=== PATIENT | female | born 1945 | race Caucasian/White ===

== ENCOUNTER → 2016-10-24 | Outpatient (CLI) | payer MEDICARE | LOC: RAD 21:41 | PROVIDERS: ATTEND Radiology Radiation Oncology | DX: C34.11 Malignant neoplasm of upper lobe, right bronchus or lung (principal) | CPT/HCPCS: 78815; A9552 ==

== ENCOUNTER → 2016-11-09 | Outpatient (CLI) | payer MEDICARE ==
[2016-11-09 17:10] LABS: ABSOLUTE BASOPHILS # (AUTO) 0.1 10^3/uL (0.0-0.2); ABSOLUTE EOSINOPHILS # (AUTO) 0.2 10^3/uL (0.0-0.6); ABSOLUTE MONOCYTES (AUTO) 0.5 10^3/uL (0.1-1.4); ABSOLUTE NEUT (AUTO) 4.7 10^3/uL (1.7-8.2); EOSINOPHILS % (AUTO) 2.1 % (0-6); HEMATOCRIT 44.5 % (36.0-47.0); HEMOGLOBIN 15.5 g/dL (12.0-15.5); LYMPHOCYTES % (AUTO) 26.7 % (13-45); MEAN CORPUSCULAR HGB CONC 34.7 g/dL (32.0-36.0); MEAN CORPUSCULAR VOLUME 89 fl (80-97); MONOCYTES % (AUTO) 6.9 % (3-13); RED BLOOD COUNT 4.99 10^6/uL (3.72-5.28); RED CELL DISTRIBUTION WIDTH 13.5 % (11.5-14.0); SEGMENTED NEUTROPHILS % (AUTO) 63.3 % (42-78); WHITE BLOOD COUNT 7.4 10^3/uL (4.0-10.5)
== END ==
LOC: OD 16:03
PROVIDERS: ATTEND Radiology Radiation Oncology
DX: C34.11 Malignant neoplasm of upper lobe, right bronchus or lung (principal)
CPT/HCPCS: 36415; 85025

== ENCOUNTER → 2016-11-17 | Outpatient (CLI) | payer MEDICARE ==
[2016-11-17 16:38] LABS: ABSOLUTE BASOPHILS # (AUTO) 0.1 10^3/uL (0.0-0.2); ABSOLUTE EOSINOPHILS # (AUTO) 0.1 10^3/uL (0.0-0.6); ABSOLUTE MONOCYTES (AUTO) 0.6 10^3/uL (0.1-1.4); ABSOLUTE NEUT (AUTO) 4.6 10^3/uL (1.7-8.2); BASOPHILS % (AUTO) 0.8 % (0-2); EOSINOPHILS % (AUTO) 2.2 % (0-6); HEMATOCRIT 39.1 % (36.0-47.0); HEMOGLOBIN 13.3 g/dL (12.0-15.5); HGB HCT DIFFERENCE 0.8; LYMPHOCYTES % (AUTO) 16.2 % (13-45); MEAN CORPUSCULAR HEMOGLOBIN 30.5 pg (27.0-33.4); MEAN CORPUSCULAR HGB CONC 34.1 g/dL (32.0-36.0); MEAN CORPUSCULAR VOLUME 89 fl (80-97); MONOCYTES % (AUTO) 9.1 % (3-13); RED BLOOD COUNT 4.38 10^6/uL (3.72-5.28); RED CELL DISTRIBUTION WIDTH 13.5 % (11.5-14.0); SEGMENTED NEUTROPHILS % (AUTO) 71.7 % (42-78); WHITE BLOOD COUNT 6.5 10^3/uL (4.0-10.5)
== END ==
LOC: OD 15:00
PROVIDERS: ATTEND Radiology Radiation Oncology
DX: C34.11 Malignant neoplasm of upper lobe, right bronchus or lung (principal)
CPT/HCPCS: 36415; 85025

== ENCOUNTER → 2016-11-24 | Outpatient (CLI) | payer MEDICARE ==
[2016-11-24 14:02] LABS: ABSOLUTE EOSINOPHILS # (AUTO) 0.1 10^3/uL (0.0-0.6); ABSOLUTE LYMPHOCYTES (AUTO) 0.7 10^3/uL (0.5-4.7); ABSOLUTE MONOCYTES (AUTO) 0.5 10^3/uL (0.1-1.4); ABSOLUTE NEUT (AUTO) 3.7 10^3/uL (1.7-8.2); BASOPHILS % (AUTO) 0.7 % (0-2); EOSINOPHILS % (AUTO) 2.5 % (0-6); HEMATOCRIT 39.5 % (36.0-47.0); HEMOGLOBIN 13.4 g/dL (12.0-15.5); HGB HCT DIFFERENCE 0.7; LYMPHOCYTES % (AUTO) 13.9 % (13-45); MEAN CORPUSCULAR HEMOGLOBIN 30.4 pg (27.0-33.4); MEAN CORPUSCULAR HGB CONC 33.9 g/dL (32.0-36.0); MEAN CORPUSCULAR VOLUME 90 fl (80-97); MONOCYTES % (AUTO) 10.1 % (3-13); RED CELL DISTRIBUTION WIDTH 13.8 % (11.5-14.0); SEGMENTED NEUTROPHILS % (AUTO) 72.8 % (42-78); WHITE BLOOD COUNT 5.1 10^3/uL (4.0-10.5)
== END ==
LOC: OD 12:36
PROVIDERS: ATTEND Radiology Radiation Oncology
DX: C34.11 Malignant neoplasm of upper lobe, right bronchus or lung (principal)
CPT/HCPCS: 36415; 85025

== ENCOUNTER → 2016-12-01 | Outpatient (CLI) | payer MEDICARE ==
[2016-12-01 13:53] LABS: ABSOLUTE EOSINOPHILS # (AUTO) 0.1 10^3/uL (0.0-0.6); ABSOLUTE LYMPHOCYTES (AUTO) 0.6 10^3/uL (0.5-4.7); ABSOLUTE MONOCYTES (AUTO) 0.5 10^3/uL (0.1-1.4); ABSOLUTE NEUT (AUTO) 3.4 10^3/uL (1.7-8.2); BASOPHILS % (AUTO) 0.7 % (0-2); EOSINOPHILS % (AUTO) 2.3 % (0-6); HEMATOCRIT 37.1 % (36.0-47.0); HEMOGLOBIN 12.9 g/dL (12.0-15.5); HGB HCT DIFFERENCE 1.6; LYMPHOCYTES % (AUTO) 13.5 % (13-45); MEAN CORPUSCULAR HEMOGLOBIN 31.2 pg (27.0-33.4); MEAN CORPUSCULAR HGB CONC 34.8 g/dL (32.0-36.0); MEAN CORPUSCULAR VOLUME 90 fl (80-97); RED BLOOD COUNT 4.13 10^6/uL (3.72-5.28); RED CELL DISTRIBUTION WIDTH 14.3 % (11.5-14.0); SEGMENTED NEUTROPHILS % (AUTO) 72.5 % (42-78); WHITE BLOOD COUNT 4.7 10^3/uL (4.0-10.5)
== END ==
LOC: OD 12:29
PROVIDERS: ATTEND Radiology Radiation Oncology
DX: C34.11 Malignant neoplasm of upper lobe, right bronchus or lung (principal)
CPT/HCPCS: 36415; 85025

== ENCOUNTER → 2016-12-08 | Outpatient (CLI) | payer MEDICARE ==
[2016-12-08 13:57] LABS: ABSOLUTE EOSINOPHILS # (AUTO) 0.1 10^3/uL (0.0-0.6); ABSOLUTE LYMPHOCYTES (AUTO) 0.5 10^3/uL (0.5-4.7); ABSOLUTE MONOCYTES (AUTO) 0.6 10^3/uL (0.1-1.4); ABSOLUTE NEUT (AUTO) 3.4 10^3/uL (1.7-8.2); EOSINOPHILS % (AUTO) 2.4 % (0-6); HEMATOCRIT 36.9 % (36.0-47.0); HEMOGLOBIN 12.9 g/dL (12.0-15.5); HGB HCT DIFFERENCE 1.8; LYMPHOCYTES % (AUTO) 11.5 % (13-45); MEAN CORPUSCULAR HEMOGLOBIN 31.5 pg (27.0-33.4); MEAN CORPUSCULAR HGB CONC 34.8 g/dL (32.0-36.0); MEAN CORPUSCULAR VOLUME 91 fl (80-97); MONOCYTES % (AUTO) 11.9 % (3-13); RED BLOOD COUNT 4.07 10^6/uL (3.72-5.28); RED CELL DISTRIBUTION WIDTH 14.8 % (11.5-14.0); SEGMENTED NEUTROPHILS % (AUTO) 73.2 % (42-78); WHITE BLOOD COUNT 4.7 10^3/uL (4.0-10.5)
== END ==
LOC: OD 12:37
PROVIDERS: ATTEND Radiology Radiation Oncology
DX: C34.11 Malignant neoplasm of upper lobe, right bronchus or lung (principal)
CPT/HCPCS: 36415; 85025

== ENCOUNTER → 2016-12-15 | Outpatient (CLI) | payer MEDICARE ==
[2016-12-15 13:51] LABS: ABSOLUTE EOSINOPHILS # (AUTO) 0.2 10^3/uL (0.0-0.6); ABSOLUTE LYMPHOCYTES (AUTO) 0.5 10^3/uL (0.5-4.7); ABSOLUTE MONOCYTES (AUTO) 0.7 10^3/uL (0.1-1.4); ABSOLUTE NEUT (AUTO) 3.1 10^3/uL (1.7-8.2); BASOPHILS % (AUTO) 1.1 % (0-2); EOSINOPHILS % (AUTO) 3.5 % (0-6); HEMATOCRIT 37.2 % (36.0-47.0); HEMOGLOBIN 12.8 g/dL (12.0-15.5); HGB HCT DIFFERENCE 1.2; MEAN CORPUSCULAR HEMOGLOBIN 31.8 pg (27.0-33.4); MEAN CORPUSCULAR HGB CONC 34.5 g/dL (32.0-36.0); MEAN CORPUSCULAR VOLUME 92 fl (80-97); RED BLOOD COUNT 4.04 10^6/uL (3.72-5.28); RED CELL DISTRIBUTION WIDTH 16.7 % (11.5-14.0); SEGMENTED NEUTROPHILS % (AUTO) 69.4 % (42-78); WHITE BLOOD COUNT 4.4 10^3/uL (4.0-10.5)
== END ==
LOC: OD 12:57
PROVIDERS: ATTEND Radiology Radiation Oncology
DX: C34.11 Malignant neoplasm of upper lobe, right bronchus or lung (principal)
CPT/HCPCS: 36415; 85025

== ENCOUNTER → 2017-01-21 | Outpatient (CLI) | payer MEDICARE ==
--- NOTE | 2017-01-21 10:37 | RADIOLOGY REPORT (SQ) ---
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 Images reviewed with lung, soft tissue and bone windows. Reconstructed coronal and sagittal MPR images reviewed. All images stored on PACS. All CT scanners at this facility use dose modulation, iterative reconstruction, and/or weight based d osing when appropriate to reduce radiation dose to as low as reasonably achievable (ALARA). [facility]: Dose Right [facility]: CareDose [facility]: Dose Right [facility]: Teradose 4D [facility]: [employer] CONTRAST TYPE AND DOSE: 80mL Isovue 370- low osmolar. RENAL FUNCTION: Creatinine 1.2 RADIATION DOSE: 8.85 mGy. LIMITATIONS: None. FINDINGS: LUNGS AND PLEURA: A 1.7 x 1.1 cm contrast enhancing nodule occludes the right mainstem bro nchus lumen on axial image 43. This is a biopsy-proven carcinoid tumor. There is stable complete collapse of the right upper lobe. Right middle and lower lobe are hyperinflated. Left lung well inflated and clear. No acute infiltra anne-marie. No pleural effusion. No pneumothorax. No worrisome pulmonary nodules. HILAR AND MEDIASTINAL STRUCTURES: Right mainstem endobronchial carcinoid tumor on axial image 23. No hilar or mediastinal adenopathy. Tiny hiatal hernia. HEART AND VASCULAR STRUCTURES: No aneurysm or dissection. No central pulmonary emboli. No pericardi al effusion. HARDWARE: None in the chest. UPPER ABDOMEN: No significant findings. Limited exam. THYROID AND OTHER SOFT TISSUES: No masses. No adenopathy. BONES: No significant finding. OTHER: No other significant finding. IMPRESSION: Unchanged right upper lobe collapse from endobronchial lesion, similar compared to prior CT chest 06/24/2016 and PET-CT 10/24/2016. TECHNICAL DOCUMENTATION: JOB ID: [id number] Quality ID # [id number]: Final reports with documentation of one or more dose reduction techniques (e.g., Au tomated exposure control, adjustment of the mA and/or kV according to patient size, use of iterative reconstruction technique) 2010 [employer]- All Rights Reserved
== END ==
LOC: RAD 08:18
PROVIDERS: ATTEND Specialist
DX: C7A.090 Malignant carcinoid tumor of the bronchus and lung (principal)
CPT/HCPCS: 71260

== ENCOUNTER → 2017-05-30 | Outpatient (CLI) | payer MEDICARE ==
--- NOTE | 2017-05-30 10:16 | RADIOLOGY REPORT (SQ) ---
EXAM DESCRIPTION: CT CHEST WITH COMPLETED DATE/TIME: 05/30/2017 9:06 am REASON FOR STUDY: LUNG CA C7A.090 MALIGNANT CARCINOID TUMOR OF THE BRONCHUS AND LUNG COMPARISON: 01/21/2017 TECHNIQUE: CT scan of the chest performed using helical scanning technique with dynamic intravenous contrast injection. Images reviewed with lung, soft tissue and bone windows. Reconstructed coronal and sagittal MPR images reviewed. All images stored on PACS. All CT scanners at this facility use dose modulation, iterative reconstruction, and/or weight based d osing when appropriate to reduce radiation dose to as low as reasonably achievable (ALARA). [facility]: Dose Right [facility]: CareDose [facility]: Dose Right [facility]: Teradose 4D [facility]: [employer] CONTRAST TYPE AND DOSE: contrast/concentration: Isovue 370.00 mg/ml; Total Contrast Delivered: 80.0 ml; Total Saline Delivered: 55.0 ml RENAL FUNCTION: Creatinine 1.0 RADIATION DOSE: Up-to-date CT equipment and radiation dose reduction techniques were employed. CTDIv ol: 9.2 mGy. DLP: 332 mGy-cm. . LIMITATIONS: None. FINDINGS: LUNGS AND PLEURA: Right upper lobe endobronchial lesion measures about 10 x 10 mm, previou sly about 10 x 17 mm. Unchanged right upper lobe collapse. No effusions. HILAR AND MEDIASTINAL STRUCTURES: No identified masses or abnormal nodes. HEART AND VASCULAR STRUCTURES: No aneurysm or dissection. No central pulmonary emboli. No pericardi al effusion. HARDWARE: None in the chest. UPPER ABDOMEN: No significant findings. Limited exam. THYROID AND OTHER SOFT TISSUES: No masses. No adenopathy. BONES: No significant finding. OTHER: No other significant finding. IMPRESSION: Decrease in size of right upper lobe endobronchial lesion. Favorable response to therap y. TECHNICAL DOCUMENTATION: JOB ID: [id number] Quality ID # [id number]: Final reports with documentation of one or more dose reduction techniques (e.g., Au tomated exposure control, adjustment of the mA and/or kV according to patient size, use of iterative reconstruction technique) 2010 [employer]- All Rights Reserved
== END ==
LOC: RAD 08:22
PROVIDERS: ATTEND Internal Medicine Hematology & Oncology
DX: C7A.090 Malignant carcinoid tumor of the bronchus and lung (principal)
CPT/HCPCS: 71260; 82565

== ENCOUNTER 2018-04-04 16:06 | Inpatient (IN) | payer MEDICARE ==
[2018-04-04] MEDS ORDERED: NORMAL SALINE 1000 ML 1,000 ML IV ONE ×2 (16:42→17:21)
[2018-04-04] MEDS ORDERED: IPRATROPIUM/ALBUTEROL 0.5-2.5 MG/3 ML AMPUL NEB ONE ×2 (16:42→18:34)
--- NOTE | 2018-04-04 16:43 | ER Document Report ---
ED General - General Mode of Arrival: Medic Information source: Relative TRAVEL OUTSIDE OF THE [place] IN LAST 30 DAYS: No <ANA FREY - Last Filed: 04/04/18 18:55> <OZIEL ARRIAZA - Last Filed: 04/04/18 19:32> - General Stated Complaint: ALTERED MENTAL STATUS Time Seen by Provider: 04/04/18 16:40 - HPI Notes: 72-year-old female with a history of dementia presents to the ED via EMS for aggressive behavior of punching and kicking and spitting EMS. Patient has a long history of dementia for approximately last 4 years, per , patient has become progressively more aggressive in the last 4 months. EMS gave patient Haldol 5 mg IM, 5 mg of Versed IM and 25 mg of Benadryl IM. Patient was placed in 4 point restraints. states that patient becomes very agitated with anyone new who comes to the house, has been his stable patient for the last year trying to take care of her but she has become too aggressive. states he started to become overwhelmed, paid for a home health care nurse to come today was her first day, patient became very upset and angry and threw things at home care nurse as to bite her. This is why EMS was called. Per patient had stopped seeing her primary care provider a year ago as well as a neurologist for her dementia because she refused to see doctors. Patient does not like the new people come to the home. states he is concerned about his own safety due to patient's dementia becoming worse the last couple of months. (ANA FREY) - Related Data Allergies/Adverse Reactions: Penicillins Allergy (Verified 04/04/18 17:05) effected kidneys Past Medical History - Social History Family History: Reviewed & Not Pertinent - Past Medical History Cardiac Medical History: Reports: Hx Hypercholesterolemia, Hx Hypertension Pulmonary Medical History: Reports: Hx COPD Musculoskeletal Medical History: Reports Hx Arthritis Psychiatric Medical History: Reports: Hx Dementia Past Surgical History: Reports: Hx Appendectomy, Hx Hysterectomy, Hx Tonsillectomy - Immunizations Hx Diphtheria, Pertussis, Tetanus Vaccination: - unknown <ANA FREY - Last Filed: 04/04/18 18:55> - Social History Smoking Status: Unknown if Ever Smoked <OZIEL ARRIAZA - Last Filed: 04/04/18 19:32> Physical Exam <SHANTEANA A - Last Filed: 04/04/18 18:55> <OZIEL ARRIAZA - Last Filed: 04/04/18 19:32> - Vital signs Vitals: Resp Pulse Ox 18 92 04/04/18 16:10 04/04/18 16:10 - Notes Notes: PHYSICAL EXAMINATION: GENERAL: Clinically ill-appearing well-nourished and in no acute distress. HEAD: Atraumatic, normocephalic. EYES: Pupils equal round and reactive to light, extraocular movements intact, conjunctiva are normal. ENT: Nares patent, oropharynx clear without exudates. Moist mucous membranes. NECK: Normal range of motion, supple without lymphadenopathy LUNGS: Bilateral wheezes in upper bases only, breath sounds heard in bilateral lower lobes. No rhonchi bilaterally. HEART: Regular rate and rhythm without murmurs ABDOMEN: Soft, nontender, nondistended abdomen. No guarding, no rebound. No masses appreciated. Female : deferred Musculoskeletal: Normal range of motion, no pitting or edema. No cyanosis. NEUROLOGICAL: Awake, alert, orientated. PSYCH: Agitated SKIN: Warm, Dry, normal turgor, no rashes or lesions noted. (ANA FREY) Course - Laboratory Result Diagrams: 04/04/18 16:30 04/04/18 16:30 <SHANTEANA A - Last Filed: 04/04/18 18:55> - Laboratory Result Diagrams: 04/04/18 16:30 04/04/18 16:30 <OZIEL ARRIAZA - Last Filed: 04/04/18 19:32> - Re-evaluation Re-evalutation: 04/04/18 18:35 72-year-old female with a medical history of dementia presents to the ED in 4 point restraints for combativeness when home care nurse came to house for evaluation, patient allegedly became very aggressive and started to kick punch and kick home care nurse, , EMS was called, she tried to kick punch and spit at EMS, patient was given 5 mg Haldol, 5 mg Versed and 25 mg of Benadryl all IM. On evaluation patient has wheezing bilateral upper bases, urine does appear cloudy when she is a straight cath. Patient's vitals appears stable, IV fluids given. CBC negative for anemia or leukocytosis. CMP negative for hepatic or renal deficiency electrolyte disturbances. Urinalysis shows pyelonephritis. Will send for urine culture. Ordered IV broad-spectrum antibiotics along with urine culture. First set of cardiac enzymes negative. EKG normal sinus rhythm, no STEMI. Chest x-ray unremarkable. Ct head negative for acute stroke noted chronic changes. Low suspicion for any acute glaucoma, temporal arteritis, meningitis intracranial hemorrhage, ischemic stroke due to patient demonstrating these aggressive behaviors for the last 4 months. appeared approximately 20 minutes after patient came to the emergency room for AMS per EMS, which pt does not have. confirms that patient's dementia has become progressively worse over the last 4 months, has had dementia for the last 3 years. Patient has not been evaluated by a medical provider in the duration of time. Patienconsulted with Dr. Avril Basurto, as well as for patient having a pyelonephritis with encephalopathy. Will admit to hospitalist to medical floor for IV antibiotics as well as monitoring 04/04/18 18:55 (ANA FREY) - Vital Signs Vital signs: Temp Pulse Resp BP Pulse Ox 97.8 F 27 H 120/86 H 96 04/04/18 18:11 04/04/18 19:11 04/04/18 19:11 04/04/18 19:10 - Laboratory Laboratory results interpreted by me: 04/04/18 04/04/18 16:30 16:30 Chloride 97 L Carbon Dioxide 33 H Est GFR (Non-Af Amer) 57 L Glucose 115 H Urine Protein 30 H Urine Blood SMALL H Urine Nitrite POSITIVE H Urine Urobilinogen 2.0 H Ur Leukocyte Esterase LARGE H Discharge - Discharge Admitting Provider: Hospitalist - Dr. Avril Basurto <ANA FREY - Last Filed: 04/04/18 18:55> - Discharge Unit Admitted: Medical Floor <OZIEL ARRIAZA - Last Filed: 04/04/18 19:32> - Discharge Clinical Impression: Acute pyelonephritis, Encephalopathy due to pyelonephritis Condition: Stable Disposition: ADMITTED INPATIENT Instructions: Pyelonephritis ([facility]) Referrals: THOR MAZARIEGOS MD [ASSOCIATE] - Follow up as needed
[2018-04-04 17:02] LABS: ABSOLUTE EOSINOPHILS # (AUTO) 0.1 10^3/uL (0.0-0.6); ABSOLUTE LYMPHOCYTES (AUTO) 1.3 10^3/uL (0.5-4.7); ABSOLUTE MONOCYTES (AUTO) 0.5 10^3/uL (0.1-1.4); ABSOLUTE NEUT (AUTO) 5.1 10^3/uL (1.7-8.2); BASOPHILS % (AUTO) 0.5 % (0-2); EOSINOPHILS % (AUTO) 0.8 % (0-6); HEMATOCRIT 37.8 % (36.0-47.0); HEMOGLOBIN 12.8 g/dL (12.0-15.5); LYMPHOCYTES % (AUTO) 18.7 % (13-45); MEAN CORPUSCULAR VOLUME 91 fl (80-97); MONOCYTES % (AUTO) 7.2 % (3-13); PLATELET COUNT 224 10^3/uL (150-450); RED BLOOD COUNT 4.13 10^6/uL (3.72-5.28); RED CELL DISTRIBUTION WIDTH 13.5 % (11.5-14.0); SEGMENTED NEUTROPHILS % (AUTO) 72.8 % (42-78); TOTAL CELLS COUNTED % (AUTO) 100 %; WHITE BLOOD COUNT 7.1 10^3/uL (4.0-10.5)
[2018-04-04 17:17] LABS: ALANINE AMINOTRANSFERASE 21 U/L (9-52); ALBUMIN 3.8 g/dL (3.5-5.0); ALKALINE PHOSPHATASE 66 U/L (38-126); ANION GAP 13 (5-19); ASPARTATE AMINO TRANSFERASE 27 U/L (14-36); BILIRUBIN,DIRECT 0.4 mg/dL (0.0-0.4); BILIRUBIN,TOTAL 0.5 mg/dL (0.2-1.3); BLOOD UREA NITROGEN 18 mg/dL (7-20); CALCIUM 9.9 mg/dL (8.4-10.2); CARBON DIOXIDE 33 mmol/L (22-30); CHLORIDE 97 mmol/L (98-107); CREATINE KINASE 96 U/L (30-135); GLUCOSE 115 mg/dL (75-110); SODIUM 143.2 mmol/L (137-145); TOTAL PROTEIN 6.4 g/dL (6.3-8.2)
[2018-04-04 17:23] LABS: CREATINE KINASE MB 1.44 ng/mL (<4.55); TROPONIN I < 0.012 ng/mL
--- NOTE | 2018-04-04 17:23 | RADIOLOGY REPORT (SQ) ---
EXAM DESCRIPTION: CHEST SINGLE VIEW COMPLETED DATE/TIME: 04/04/2018 4:56 pm REASON FOR STUDY: wheezing in lungs COMPARISON: 06/24/2016. CT 05/30/2017 EXAM PARAMETERS: NUMBER OF VIEWS: One view. TECHNIQUE: Single frontal radiographic view of the chest acquired. RADIATION DOSE: NA LIMITATIONS: None. FINDINGS: LUNGS AND PLEURA: No opacities, masses or pneumothorax. No pleural effusion. MEDIASTINUM AND HILAR STRUCTURES: Slightly prominent contour to the mediastinum on the right but sign ificantly improved compared to the study from 06/24/2016 HEART AND VASCULAR STRUCTURES: Heart normal in size. Normal vasculature. BONES: No acute findings. HARDWARE: None in the chest. OTHER: No other significant finding. IMPRESSION: NO ACUTE RADIOGRAPHIC FINDING IN THE CHEST. TECHNICAL DOCUMENTATION: JOB ID: [id number] [employer]- All Rights Reserved Reading location - IP/workstation name: [email or web address]
[2018-04-04 17:45] LABS: APPEARANCE,URINE CLOUDY; BILIRUBIN,URINE NEGATIVE (NEGATIVE); COLOR,URINE YELLOW; GLUCOSE, URINE NEGATIVE (NEGATIVE); KETONES,URINE NEGATIVE (NEGATIVE); LEUKOCYTE ESTERASE,URINE LARGE (NEGATIVE); NITRITE,URINE POSITIVE (NEGATIVE); PROTEIN,URINE 30 mg/dL (NEGATIVE); URINE SPECIFIC GRAVITY 1.019
[2018-04-04] MEDS ORDERED: DIPHENHYDRAMINE HCL 50 MG/ML VIAL IV ONE (18:16)
[2018-04-04] MEDS ORDERED: DIPHENHYDRAMINE HCL 50 MG/ML VIAL ONE (18:17)
[2018-04-04] MEDS ORDERED: CEFTRIAXONE INJ 1000 MG VIAL IV ONE (18:28)
--- NOTE | 2018-04-04 18:36 | RADIOLOGY REPORT (SQ) ---
EXAM DESCRIPTION: CT HEAD WITHOUT COMPLETED DATE/TIME: 04/04/2018 6:25 pm REASON FOR STUDY: AMS COMPARISON: None. TECHNIQUE: Axial images acquired through the brain without intravenous contrast. Images reviewed wi th bone, brain and subdural windows. Additional sagittal and coronal reconstructions were generated. Images stored on PACS. All CT scanners at this facility use dose modulation, iterative reconstruction, and/or weight based d osing when appropriate to reduce radiation dose to as low as reasonably achievable (ALARA). [facility]: Dose Right [facility]: CareDose [facility]: Dose Right [facility]: Teradose 4D [facility]: [employer] RADIATION DOSE: CT Rad equipment meets quality standard of care and radiation dose reduction techniq ues were employed. CTDIvol: 53.2 mGy. DLP: 991 mGy-cm. mGy. LIMITATIONS: None. FINDINGS: VENTRICLES: Prominent. CEREBRUM: No masses. No hemorrhage. No midline shift. Areas of low density in the white matter mos t likely due to chronic micro-vascular ischemic change. No evidence for acute infarction. CEREBELLUM: No masses. No hemorrhage. No alteration of density. No evidence for acute infarction. EXTRAAXIAL SPACES: Mild age-related involutional change. No fluid collections. No masses. ORBITS AND GLOBE: No intra- or extraconal masses. Normal contour of globe without masses. CALVARIUM: No fracture. PARANASAL SINUSES: No fluid or mucosal thickening. SOFT TISSUES: No mass or hematoma. OTHER: No other significant finding. IMPRESSION: MILD CHRONIC CHANGES OF ATROPHY AND MICROVASCULAR ISCHEMIA. NO ACUTE PROCESS. EVIDENCE OF ACUTE STROKE: NO. TECHNICAL DOCUMENTATION: JOB ID: [id number] Quality ID # 436: Final reports with documentation of one or more dose reduction techniques (e.g., Au tomated exposure control, adjustment of the mA and/or kV according to patient size, use of iterative reconstruction technique) 2010 [employer]- All Rights Reserved Reading location - IP/workstation name: [email or web address]
[2018-04-04] MEDS ORDERED: 1/2 NORMAL SALINE 1,000 ML IV PRN (20:11)
[2018-04-04] MEDS ORDERED: HALOPERIDOL LACTATE INJ 5 MG/1 ML VIAL IV ONE (20:30)
[2018-04-04] MEDS: ENOXAPARIN SODIUM INJ 30 MG/0.3 ML DISP.SYRIN SUBCUT SCH (20:32)
--- NOTE | 2018-04-04 22:17 | RADIOLOGY REPORT (SQ) ---
EXAM DESCRIPTION: CT CHEST WITH COMPLETED DATE/TIME: 04/04/2018 9:19 pm REASON FOR STUDY: H/O LUNG CANCER. COMPARISON: Chest x-ray 04/04/2018 CT 05/30/2017 TECHNIQUE: CT scan of the chest performed using helical scanning technique with dynamic intravenous contrast injection. Images reviewed with lung, soft tissue and bone windows. Reconstructed coronal and sagittal MPR images reviewed. All images stored on PACS. All CT scanners at this facility use dose modulation, iterative reconstruction, and/or weight based d osing when appropriate to reduce radiation dose to as low as reasonably achievable (ALARA). [facility]: Dose Right [facility]: CareDose [facility]: Dose Right [facility]: Teradose 4D [facility]: [employer] CONTRAST TYPE AND DOSE: contrast/concentration: Isovue 350.00 mg/ml; Total Contrast Delivered: 80.0 ml; Total Saline Delivered: 55.0 ml RENAL FUNCTION: BUN 18 creatinine 1 RADIATION DOSE: CT Rad equipment meets quality standard of care and radiation dose reduction techniq ues were employed. CTDIvol: 9.4 mGy. DLP: 320 mGy-cm. . LIMITATIONS: None. FINDINGS: LUNGS AND PLEURA: No pulmonary nodules or masses. Significant right upper lobe atelectasi s. HILAR AND MEDIASTINAL STRUCTURES: No identified masses or abnormal nodes. HEART AND VASCULAR STRUCTURES: No aneurysm or dissection. No central pulmonary emboli. No pericardi al effusion. HARDWARE: None in the chest. UPPER ABDOMEN: No significant findings. Limited exam. THYROID AND OTHER SOFT TISSUES: No masses. No adenopathy. BONES: No significant finding. OTHER: No other significant finding. IMPRESSION: Persistent partial atelectasis in the right upper lobe. TECHNICAL DOCUMENTATION: JOB ID: [id number] Quality ID # [id number]: Final reports with documentation of one or more dose reduction techniques (e.g., Au tomated exposure control, adjustment of the mA and/or kV according to patient size, use of iterative reconstruction technique) 2010 [employer]- All Rights Reserved Reading location - IP/workstation name: [email or web address]
--- NOTE | 2018-04-04 22:35 | EKG REPORT ---
SEVERITY:- BORDERLINE ECG - SINUS RHYTHM RIGHT AXIS DEVIATION BORDERLINE PROLONGED QT INTERVAL : Confirmed by: Juana Braga MD 04-Apr-2018 22:35:16
[2018-04-05] MEDS ORDERED: HALOPERIDOL 2 MG TABLET ONE (05:22)
[2018-04-05] MEDS: HALOPERIDOL 2 MG TABLET PO PRN ×2 (05:24→12:31)
[2018-04-05] MEDS: ENOXAPARIN SODIUM INJ 30 MG/0.3 ML DISP.SYRIN SUBCUT SCH (09:03)
[2018-04-05] MEDS ORDERED: (PENDING PHARMACY ID) (Lisinopril [Prinivil 30 Mg Tablet] 30 MG) PO SCH (14:30)
--- NOTE | 2018-04-05 15:46 | PSYCHOLOGICAL NOTE ---
Psych Note - Psych Note Psych Note: Reason for Consult: medication recommendations 72-year-old female with a history of dementia presents to the ED via EMS for aggressive behavior of punching and kicking and spitting EMS. Patient has a long history of dementia for approximately last 4 years, per , patient has become progressively more aggressive in the last 4 months. Medication recommendations per [facility]'s contracted psychiatrist Dr. Sridevi MEDRANO are as follows 1. Please discontinue Lexapro and Haldol 2. Please start Depakote 500 mg twice daily 3. Please start BuSpar 10 mg twice daily Treating physicians are asked to consider to avoid prescribing benzodiazepines ( e.g. Ativan, Xanax, Valium, Klonopin), antipsychotics (e.g. Haldol, Geodon, Zyprexa, Seroquel), some sleep aids (e.g. Ambien, Lunesta, Sonata), narcotic pain medications, and high-dose steroids (prednisone) as these have been known to cause and/or increased symptoms of aggression, psychosis, and/or paranoia in patients with neurodegenerative processes such as dementia, Alzheimer's disease , traumatic brain injury, etc.
[2018-04-05 15:56] LABS: ABSOLUTE BASOPHILS # (AUTO) 0.1 10^3/uL (0.0-0.2); ABSOLUTE EOSINOPHILS # (AUTO) 0.1 10^3/uL (0.0-0.6); ABSOLUTE MONOCYTES (AUTO) 0.5 10^3/uL (0.1-1.4); ABSOLUTE NEUT (AUTO) 5.7 10^3/uL (1.7-8.2); BASOPHILS % (AUTO) 0.8 % (0-2); EOSINOPHILS % (AUTO) 0.8 % (0-6); HEMATOCRIT 34.4 % (36.0-47.0); HEMOGLOBIN 11.8 g/dL (12.0-15.5); LYMPHOCYTES % (AUTO) 13.1 % (13-45); MEAN CORPUSCULAR HEMOGLOBIN 31.2 pg (27.0-33.4); MEAN CORPUSCULAR HGB CONC 34.1 g/dL (32.0-36.0); MEAN CORPUSCULAR VOLUME 91 fl (80-97); MONOCYTES % (AUTO) 6.6 % (3-13); PLATELET COUNT 183 10^3/uL (150-450); RED BLOOD COUNT 3.77 10^6/uL (3.72-5.28); RED CELL DISTRIBUTION WIDTH 13.5 % (11.5-14.0); SEGMENTED NEUTROPHILS % (AUTO) 78.7 % (42-78); TOTAL CELLS COUNTED % (AUTO) 100 %; WHITE BLOOD COUNT 7.2 10^3/uL (4.0-10.5)
[2018-04-05 16:16] LABS: ALANINE AMINOTRANSFERASE 29 U/L (9-52); ALKALINE PHOSPHATASE 73 U/L (38-126); ANION GAP 6 (5-19); ASPARTATE AMINO TRANSFERASE 29 U/L (14-36); BILIRUBIN,DIRECT 0.2 mg/dL (0.0-0.4); BILIRUBIN,TOTAL 0.6 mg/dL (0.2-1.3); BLOOD UREA NITROGEN 8 mg/dL (7-20); CALCIUM 8.8 mg/dL (8.4-10.2); CARBON DIOXIDE 34 mmol/L (22-30); CHLORIDE 103 mmol/L (98-107); GLUCOSE 86 mg/dL (75-110); SODIUM 143.3 mmol/L (137-145); TOTAL PROTEIN 5.4 g/dL (6.3-8.2)
[2018-04-05 16:21] LABS: POTASSIUM 2.9 mmol/L (3.6-5.0)
[2018-04-05] MEDS: POTASSIUM CHLORIDE 20 MEQ/50 ML RTU IV SCH ×2 (16:54→19:01)
[2018-04-05] MEDS: HYDROCHLOROTHIAZIDE 25 MG TABLET PO SCH (16:57)
[2018-04-05] MEDS: ASPIRIN 81 MG TABLET, ENT COATED PO SCH (16:59)
[2018-04-05] MEDS: HALOPERIDOL LACTATE INJ 5 MG/1 ML VIAL IV PRN ×2 (17:00→23:14)
[2018-04-05] MEDS: ESCITALOPRAM OXALATE 10 MG TABLET PO SCH (17:00)
[2018-04-05] MEDS: BUDESONIDE/FORMOTEROL 160-4.5 MCG 60 PUFF/6 GM MDI IH SCH ×2 (17:04→23:15)
--- NOTE | 2018-04-05 18:16 | PDOC H&P ---
History of Present Illness Admission Date/PCP: 04/04/18 19:41 KATERIN ANDERSON MD Patient complains of: ALTERED MENTAL STATUS. DEMENTIA. History of Present Illness: ESME DENG is a 72 year old female History is mainly thru . is in 4 point restraints. pt is alert and awake but disoriented and agitated and delirius. ED note reviewed as below. 72-year-old female with a history of dementia presents to the ED via EMS for aggressive behavior of punching and kicking and spitting EMS. Patient has a long history of dementia for approximately last 4 years, per , patient has become progressively more aggressive in the last 4 months. EMS gave patient Haldol 5 mg IM, 5 mg of Versed IM and 25 mg of Benadryl IM. Patient was placed in 4 point restraints. states that patient becomes very agitated with anyone new who comes to the house, has been his stable patient for the last year trying to take care of her but she has become too aggressive. states he started to become overwhelmed, paid for a home health care nurse to come today was her first day, patient became very upset and angry and threw things at home care nurse as to bite her. This is why EMS was called. Per patient had stopped seeing her primary care provider a year ago as well as a neurologist for her dementia because she refused to see doctors. Patient does not like the new people come to the home. states he is concerned about his own safety due to patient's dementia becoming worse the last couple of months. Past Medical History Cardiac Medical History: Reports: Hyperlipidema, Hypertension Pulmonary Medical History: Reports: Chronic Obstructive Pulmonary Disease (COPD) Pulmonary History Note: LUNG CANCER S/P RESECTION AND S/P RADIATION. Musculoskeltal Medical History: Reports: Arthritis Psychiatric Medical History: Reports: Dementia Hematology: Denies: Anemia, Hemophilia, Sickle Cell Disease Past Surgical History Past Surgical History: Reports: Appendectomy, Hysterectomy, Tonsillectomy Denies: Amputation Social History Information Source: Relative - SPOUSE JOHANNA DENG [phone]. Lives with: Family Smoking Status: Unknown if Ever Smoked Hx Recreational Drug Use: No Hx Prescription Drug Abuse: No Family History Family History: Reviewed & Not Pertinent Parental Family History Reviewed: No - not contributory and pt unable to give history Children Family History Reviewed: NA Sibling(s) Family History Reviewed.: NA Medication/Allergy Home Medications: Aspirin [Aspirin EC] 81 mg PO DAILY 06/25/16 Atorvastatin Calcium [Lipitor 10 mg Tablet] 10 mg PO QHS 06/25/16 Budesonide/Formoterol Fumarate [Symbicort HFA 160-4.5 mcg Inhaler 6 gm] 1 puff PO Q12 06/25/16 Donepezil HCl 10 mg PO QHS 06/25/16 Escitalopram Oxalate [Lexapro 10 mg Tablet] 10 mg PO DAILY 06/25/16 Hydrochlorothiazide 25 mg PO DAILY 06/25/16 Lisinopril [Prinivil 30 mg Tablet] 30 mg PO DAILY 06/25/16 Omeprazole 20 mg PO DAILY 06/25/16 Potassium Chloride 20 meq PO DAILY 06/25/16 Cholecalciferol (Vitamin D3) [Vitamin D3 5000 unit Capsule] 5,000 unit PO DAILY 04/04/18 Allergies/Adverse Reactions: Penicillins Allergy (Verified 04/04/18 17:05) effected kidneys Review of Systems ROS unobtainable: Due to mental status Physical Exam Vital Signs: Temp Pulse Resp BP Pulse Ox 97.8 F 27 H 120/86 H 96 04/04/18 18:11 04/04/18 19:11 04/04/18 19:11 04/04/18 19:10 General appearance: PRESENT: no acute distress, disheveled Eye exam: PRESENT: EOMI, PERRLA Ear exam: PRESENT: normal external ear exam Teeth exam: PRESENT: dental caries Respiratory exam: PRESENT: crackles, rhonchi, wheezes. ABSENT: accessory muscle use Cardiovascular exam: PRESENT: RRR GI/Abdominal exam: PRESENT: normal bowel sounds, soft. ABSENT: tenderness Rectal exam: PRESENT: deferred Neurological exam: PRESENT: alert, awake, CN II-XII grossly intact Psychiatric exam: PRESENT: agitated. ABSENT: appropriate affect Focused psych exam: PRESENT: restlessness Results Impressions: Chest X-Ray 04/04/18 16:40 IMPRESSION: NO ACUTE RADIOGRAPHIC FINDING IN THE CHEST. Head CT 04/04/18 17:13 IMPRESSION: MILD CHRONIC CHANGES OF ATROPHY AND MICROVASCULAR ISCHEMIA. NO ACUTE PROCESS. EVIDENCE OF ACUTE STROKE: NO. Assessment & Plan - Diagnosis (1) Agitation Is this a current diagnosis for this admission?: Yes Plan: pt to continue on haldol prn and will evaluate with labs and imaging. (2) UTI (urinary tract infection) Qualifiers: Urinary tract infection type: acute cystitis Hematuria presence: with hematuria Qualified Code(s): N30.01 - Acute cystitis with hematuria Is this a current diagnosis for this admission?: Yes Plan: pt received rocephin and will continue abx. culture sent. (3) Lung cancer Qualifiers: Laterality: unspecified laterality Is this a current diagnosis for this admission?: No Plan: ct chest with contrast. (4) Requires restraints for safety Is this a current diagnosis for this admission?: Yes
--- NOTE | 2018-04-05 18:20 | PDOC PROGRESS REPORT ---
Subjective Progress Note for:: 04/05/18 Subjective:: Patient seen today for follow-up for her agitation delirium on chronic dementia. Psychiatry also has been consulted. Overnight patient provided antibiotic supportive care. Patient did require soft restraints with a sitter for safety. Today his son and spouse are at bedside. Her keen to discuss options for patient's medical condition and placement. Per is not able to take care of her patient is not safe and he feels that patient is at risk to hurt herself or somebody else. We will get case management on board and community planner. Reason For Visit: AGITATION/DELIRIUM/UTI Physical Exam Vital Signs: Temp Pulse Resp BP Pulse Ox 99.6 F 95 17 129/88 H 100 04/05/18 15:47 04/05/18 15:47 04/05/18 15:47 04/05/18 15:47 04/05/18 15:47 Intake & Output 04/04/18 04/05/18 04/06/18 06:59 06:59 06:59 Intake Total 1250 Output Total 500 Balance 750 Weight 127 lb 10.362 oz General appearance: PRESENT: no acute distress, cooperative Head exam: PRESENT: atraumatic, normocephalic Eye exam: PRESENT: EOMI Teeth exam: PRESENT: dental caries Respiratory exam: PRESENT: clear to auscultation iram Cardiovascular exam: PRESENT: RRR GI/Abdominal exam: PRESENT: soft. ABSENT: distended, tenderness Results Laboratory Results: 04/05/18 15:38 04/05/18 15:38 04/05/18 04/05/18 15:38 15:38 WBC 7.2 RBC 3.77 Hgb 11.8 L Hct 34.4 L MCV 91 MCH 31.2 MCHC 34.1 RDW 13.5 Plt Count 183 Seg Neutrophils % 78.7 H Lymphocytes % 13.1 Monocytes % 6.6 Eosinophils % 0.8 Basophils % 0.8 Absolute Neutrophils 5.7 Absolute Lymphocytes 1.0 Absolute Monocytes 0.5 Absolute Eosinophils 0.1 Absolute Basophils 0.1 Sodium 143.3 Potassium 2.9 L* D Chloride 103 Carbon Dioxide 34 H Anion Gap 6 BUN 8 Creatinine 0.81 Est GFR ( Amer) > 60 Est GFR (Non-Af Amer) > 60 Glucose 86 Calcium 8.8 Total Bilirubin 0.6 AST 29 ALT 29 Alkaline Phosphatase 73 Total Protein 5.4 L Albumin 3.0 L Impressions: Chest CT 04/04/18 00:00 IMPRESSION: Persistent partial atelectasis in the right upper lobe. Chest X-Ray 04/04/18 16:40 IMPRESSION: NO ACUTE RADIOGRAPHIC FINDING IN THE CHEST. Head CT 04/04/18 17:13 IMPRESSION: MILD CHRONIC CHANGES OF ATROPHY AND MICROVASCULAR ISCHEMIA. NO ACUTE PROCESS. EVIDENCE OF ACUTE STROKE: NO. Assessment & Plan - Diagnosis (1) Agitation Is this a current diagnosis for this admission?: Yes Plan: Psychiatry consultation. Medication changes as advised. prn Haldol for severe agitation. (2) UTI (urinary tract infection) Qualifiers: Urinary tract infection type: acute cystitis Hematuria presence: with hematuria Qualified Code(s): N30.01 - Acute cystitis with hematuria Is this a current diagnosis for this admission?: Yes Plan: Continue antibiotic therapy until culture and sensitivities resulted. (3) Lung cancer Qualifiers: Laterality: unspecified laterality Is this a current diagnosis for this admission?: No (4) Requires restraints for safety Is this a current diagnosis for this admission?: Yes
[2018-04-05] MEDS ORDERED: (PENDING PHARMACY ID) (Donepezil Hcl [Donepezil Hcl] 10 MG) PO SCH (22:00)
[2018-04-05] MEDS: DONEPEZIL HCL 5 MG TABLET PO SCH (23:14)
[2018-04-05] MEDS: ATORVASTATIN CALCIUM 10 MG TABLET PO SCH (23:15)
[2018-04-06] MEDS: LANSOPRAZOLE 15 MG TAB.RAP.DR PO SCH (05:26)
[2018-04-06] MEDS: BUDESONIDE/FORMOTEROL 160-4.5 MCG 60 PUFF/6 GM MDI IH SCH ×2 (09:13→21:16)
[2018-04-06] MEDS: ASPIRIN 81 MG TABLET, ENT COATED PO SCH (09:13)
[2018-04-06] MEDS: LISINOPRIL 10 MG TABLET PO SCH (09:13)
[2018-04-06] MEDS: ESCITALOPRAM OXALATE 10 MG TABLET PO SCH (09:13)
[2018-04-06] MEDS: ENOXAPARIN SODIUM INJ 30 MG/0.3 ML DISP.SYRIN SUBCUT SCH (09:14)
[2018-04-06 10:58] LABS: ABSOLUTE LYMPHOCYTES (AUTO) 0.8 10^3/uL (0.5-4.7); ABSOLUTE MONOCYTES (AUTO) 0.3 10^3/uL (0.1-1.4); ABSOLUTE NEUT (AUTO) 6.4 10^3/uL (1.7-8.2); BASOPHILS % (AUTO) 0.6 % (0-2); EOSINOPHILS % (AUTO) 0.5 % (0-6); HEMATOCRIT 37.1 % (36.0-47.0); HEMOGLOBIN 12.5 g/dL (12.0-15.5); LYMPHOCYTES % (AUTO) 10.3 % (13-45); MEAN CORPUSCULAR HEMOGLOBIN 30.9 pg (27.0-33.4); MEAN CORPUSCULAR HGB CONC 33.8 g/dL (32.0-36.0); MEAN CORPUSCULAR VOLUME 91 fl (80-97); MONOCYTES % (AUTO) 4.5 % (3-13); PLATELET COUNT 202 10^3/uL (150-450); RED BLOOD COUNT 4.05 10^6/uL (3.72-5.28); RED CELL DISTRIBUTION WIDTH 13.4 % (11.5-14.0); SEGMENTED NEUTROPHILS % (AUTO) 84.1 % (42-78); TOTAL CELLS COUNTED % (AUTO) 100 %; WHITE BLOOD COUNT 7.6 10^3/uL (4.0-10.5)
[2018-04-06 11:22] LABS: ALANINE AMINOTRANSFERASE 28 U/L (9-52); ALBUMIN 3.2 g/dL (3.5-5.0); ALKALINE PHOSPHATASE 75 U/L (38-126); ANION GAP 9 (5-19); ASPARTATE AMINO TRANSFERASE 26 U/L (14-36); BILIRUBIN,DIRECT 0.2 mg/dL (0.0-0.4); BILIRUBIN,TOTAL 0.6 mg/dL (0.2-1.3); BLOOD UREA NITROGEN 7 mg/dL (7-20); CALCIUM 8.9 mg/dL (8.4-10.2); CARBON DIOXIDE 34 mmol/L (22-30); CHLORIDE 102 mmol/L (98-107); GLUCOSE 137 mg/dL (75-110); PHOSPHORUS 2.4 mg/dL (2.5-4.5); TOTAL PROTEIN 5.6 g/dL (6.3-8.2)
[2018-04-06 11:26] LABS: POTASSIUM 2.8 mmol/L (3.6-5.0)
[2018-04-06] MEDS: HYDROCHLOROTHIAZIDE 25 MG TABLET PO SCH (11:58)
[2018-04-06] MEDS ORDERED: MAGNESIUM OXIDE 400 MG TABLET PO ONE (12:00)
--- NOTE | 2018-04-06 12:04 | Physician Advisory Note ---
Physician Advisor ProgressNote .: [facility], I have reviewed the medical record for this patient. Physician Advisor Statement: Documentation tips - 1. Please avoid copy/paste of narrative info - use your own words, even if you go over the same info. 2. Agitation & delirium are nonspecific sign/symptoms, rather than specific dx.s. - Whenever there is agitation or altered mental status, or delirium, please specify the most likely underlying cause. Options are below. Thanks! (Call/text if ?s -[phone]) CK Types of altered mental status (AMS): A. Metabolic Encephalopathy due to (UTI?) = AMS due to acute or chronic medical disease state, such as systemic metabolic or intracranial process that is usually reversible when the underlying cause is corrected. - Causes include fever, infection, dehydration, acidosis, sepsis, hypoxia, electrolyte imbalance, B. Toxic Encephalopathy due to =AMS due to drug, poison, or toxin. Usually reversible. C. "Dementia w/behavioral disturbance" (a chronic issue) D. Acute Delirium due to ("Acute Metabolic Encephalopathy, due to "? or worsening chronic dementia with sundowning? or "Acute Metabolic Encephopathy, superimposed on dementia, evidenced by (which is different than baseline, which is )?) Delirium = nonspecific disorientation/behavioral problem with a cause that can be psychiatric, encephalopathic, or intracranial. *If documentation does not specify the underlying cause of delirium, the ICD- 10 coding classification attributes it to a psychiatric origin (such as schizophrenia, joshua, or rapid progression of dementia), with a correspondingly lower severity of illness, than if there is encephalopathy.
[2018-04-06] MEDS ORDERED: POTASSIUM PHOS,M-BASIC-D-BASIC 40 MMOL in NORMAL SALINE 1000 ML 1,000 ML IV ONE (13:00)
[2018-04-06] MEDS ORDERED: POTASSIUM CHLORIDE 10 MEQ CAPSULE.ER PO SCH (15:00)
[2018-04-06] MEDS: CHOLECALCIFEROL (D3) 1,000 UNIT TABLET PO SCH (16:23)
[2018-04-06] MEDS: DIVALPROEX SODIUM 250 MG TABLET.DR PO SCH (17:22)
[2018-04-06] MEDS: BUSPIRONE HCL 10 MG TABLET PO SCH (17:22)
[2018-04-06] MEDS: ATORVASTATIN CALCIUM 10 MG TABLET PO SCH (21:16)
[2018-04-06] MEDS: DONEPEZIL HCL 5 MG TABLET PO SCH (21:16)
--- NOTE | 2018-04-06 23:20 | PDOC PROGRESS REPORT ---
Subjective Progress Note for:: 04/06/18 Subjective:: Patient seen today for follow-up for her agitation delirium on chronic dementia. Psychiatry also has been consulted. Overnight patient provided antibiotic supportive care. Patient did require soft restraints with a sitter for safety. Today his son and spouse are at bedside. Her keen to discuss options for patient's medical condition and placement. Per is not able to take care of her patient is not safe and he feels that patient is at risk to hurt herself or somebody else. We will get case management on board and resource management planner. 04/06/18 Patient seen today for follow-up of her dementia with behavioral disturbance the patient had been aggressive and violent with EMS transport. Suspect patient's infection could also be contributing to her acute delirium due to metabolic encephalopathy the from her urinary tract infection Per psychiatrist medication recommendations were implemented. Patient is calm today and 2 point soft restraints had 1 dose of Haldol today. Reason For Visit: AGITATION/DELIRIUM/UTI Physical Exam Vital Signs: Temp Pulse Resp BP Pulse Ox 98.7 F 78 19 147/69 H 100 04/06/18 19:22 04/06/18 19:22 04/06/18 19:22 04/06/18 19:22 04/06/18 19:22 Intake & Output 04/05/18 04/06/18 04/07/18 06:59 06:59 06:59 Intake Total 1250 668 236 Output Total 500 2600 350 Balance 750 -1932 -114 Weight 127 lb 10.362 oz 132 lb 0.91 oz General appearance: PRESENT: no acute distress, cooperative Eye exam: PRESENT: EOMI Ear exam: PRESENT: normal external ear exam Respiratory exam: PRESENT: clear to auscultation iram Cardiovascular exam: PRESENT: RRR GI/Abdominal exam: PRESENT: normal bowel sounds, soft. ABSENT: distended, tenderness Neurological exam: PRESENT: alert, awake, CN II-XII grossly intact Psychiatric exam: ABSENT: agitated, anxious Focused psych exam: ABSENT: pressured speech, restlessness Results Laboratory Results: 04/06/18 10:05 04/06/18 10:05 04/06/18 04/06/18 10:05 10:05 WBC 7.6 RBC 4.05 Hgb 12.5 Hct 37.1 MCV 91 MCH 30.9 MCHC 33.8 RDW 13.4 Plt Count 202 Seg Neutrophils % 84.1 H Lymphocytes % 10.3 L Monocytes % 4.5 Eosinophils % 0.5 Basophils % 0.6 Absolute Neutrophils 6.4 Absolute Lymphocytes 0.8 Absolute Monocytes 0.3 Absolute Eosinophils 0.0 Absolute Basophils 0.0 Sodium 145.0 Potassium 2.8 L* Chloride 102 Carbon Dioxide 34 H Anion Gap 9 BUN 7 Creatinine 0.75 Est GFR ( Amer) > 60 Est GFR (Non-Af Amer) > 60 Glucose 137 H Calcium 8.9 Phosphorus 2.4 L Magnesium 1.8 Total Bilirubin 0.6 AST 26 ALT 28 Alkaline Phosphatase 75 Total Protein 5.6 L Albumin 3.2 L Impressions: Chest CT 04/04/18 00:00 IMPRESSION: Persistent partial atelectasis in the right upper lobe. Chest X-Ray 04/04/18 16:40 IMPRESSION: NO ACUTE RADIOGRAPHIC FINDING IN THE CHEST. Head CT 04/04/18 17:13 IMPRESSION: MILD CHRONIC CHANGES OF ATROPHY AND MICROVASCULAR ISCHEMIA. NO ACUTE PROCESS. EVIDENCE OF ACUTE STROKE: NO. Assessment & Plan - Diagnosis (1) Metabolic encephalopathy Is this a current diagnosis for this admission?: Yes Plan: Attribute mental status due to metabolic encephalopathy related to her urinary tract infection. (2) UTI (urinary tract infection) Qualifiers: Urinary tract infection type: acute cystitis Hematuria presence: with hematuria Qualified Code(s): N30.01 - Acute cystitis with hematuria Is this a current diagnosis for this admission?: Yes Plan: Continue antibiotic therapy until culture and sensitivities resulted. (3) Requires restraints for safety Is this a current diagnosis for this admission?: Yes Plan: Two-point restraints for safety (4) Hypophosphatemia Is this a current diagnosis for this admission?: Yes Plan: Patient given IV phosphorus today. We will check levels in the morning (5) Hypokalemia Is this a current diagnosis for this admission?: Yes Plan: Patient given IV potassium combination today for her hypokalemia and hypophosphatemia. - Time Time Spent with patient: Less than 15 minutes Within: within 48 hours - Inpatient Certification Based on my medical assessment, after consideration of the patient's comorbidities, presenting symptoms, or acuity I expect that the services needed warrant INPATIENT care.: Yes I certify that my determination is in accordance with my understanding of Medicare's requirements for reasonable and necessary INPATIENT services [42 CFR 412.3e].: Yes Medical Necessity: Need Close Monitoring Due to Risk of Patient Decompensation
[2018-04-07 05:09] LABS: ABSOLUTE BASOPHILS # (AUTO) 0.1 10^3/uL (0.0-0.2); ABSOLUTE EOSINOPHILS # (AUTO) 0.2 10^3/uL (0.0-0.6); ABSOLUTE LYMPHOCYTES (AUTO) 1.4 10^3/uL (0.5-4.7); ABSOLUTE MONOCYTES (AUTO) 0.5 10^3/uL (0.1-1.4); ABSOLUTE NEUT (AUTO) 5.2 10^3/uL (1.7-8.2); BASOPHILS % (AUTO) 1.2 % (0-2); EOSINOPHILS % (AUTO) 2.7 % (0-6); HEMATOCRIT 35.1 % (36.0-47.0); HEMOGLOBIN 12.2 g/dL (12.0-15.5); LYMPHOCYTES % (AUTO) 19.4 % (13-45); MEAN CORPUSCULAR HEMOGLOBIN 31.5 pg (27.0-33.4); MEAN CORPUSCULAR HGB CONC 34.8 g/dL (32.0-36.0); MEAN CORPUSCULAR VOLUME 90 fl (80-97); MONOCYTES % (AUTO) 6.6 % (3-13); PLATELET COUNT 183 10^3/uL (150-450); RED BLOOD COUNT 3.89 10^6/uL (3.72-5.28); RED CELL DISTRIBUTION WIDTH 13.2 % (11.5-14.0); SEGMENTED NEUTROPHILS % (AUTO) 70.1 % (42-78); TOTAL CELLS COUNTED % (AUTO) 100 %; WHITE BLOOD COUNT 7.4 10^3/uL (4.0-10.5)
[2018-04-07 05:33] LABS: ANION GAP 8 (5-19); BLOOD UREA NITROGEN 8 mg/dL (7-20); CALCIUM 8.5 mg/dL (8.4-10.2); CARBON DIOXIDE 31 mmol/L (22-30); CHLORIDE 105 mmol/L (98-107); GLUCOSE 93 mg/dL (75-110); POTASSIUM 3.4 mmol/L (3.6-5.0); SODIUM 144.1 mmol/L (137-145)
[2018-04-07] MEDS: DIVALPROEX SODIUM 250 MG TABLET.DR PO SCH ×2 (06:10→18:37)
[2018-04-07] MEDS: LANSOPRAZOLE 15 MG TAB.RAP.DR PO SCH (06:10)
[2018-04-07] MEDS: BUSPIRONE HCL 10 MG TABLET PO SCH ×2 (06:10→18:37)
[2018-04-07] MEDS ORDERED: POTASSIUM CHLORIDE 10 MEQ CAPSULE.ER PO ONE (09:30)
[2018-04-07] MEDS: ASPIRIN 81 MG TABLET, ENT COATED PO SCH (11:33)
[2018-04-07] MEDS: CHOLECALCIFEROL (D3) 1,000 UNIT TABLET PO SCH (11:33)
[2018-04-07] MEDS: LISINOPRIL 10 MG TABLET PO SCH (11:33)
[2018-04-07] MEDS: HYDROCHLOROTHIAZIDE 25 MG TABLET PO SCH (11:35)
[2018-04-07] MEDS: ENOXAPARIN SODIUM INJ 30 MG/0.3 ML DISP.SYRIN SUBCUT SCH (11:38)
[2018-04-07] MEDS: BUDESONIDE/FORMOTEROL 160-4.5 MCG 60 PUFF/6 GM MDI IH SCH ×2 (11:39→21:03)
[2018-04-07] MEDS: ATORVASTATIN CALCIUM 10 MG TABLET PO SCH (21:02)
[2018-04-07] MEDS: DONEPEZIL HCL 5 MG TABLET PO SCH (21:02)
--- NOTE | 2018-04-07 22:15 | PDOC PROGRESS REPORT ---
Subjective Progress Note for:: 04/07/18 Subjective:: Patient seen today for follow-up for her agitation delirium on chronic dementia. Psychiatry also has been consulted. Overnight patient provided antibiotic supportive care. Patient did require soft restraints with a sitter for safety. Today his son and spouse are at bedside. Her keen to discuss options for patient's medical condition and placement. Per is not able to take care of her patient is not safe and he feels that patient is at risk to hurt herself or somebody else. We will get case management on board and community planner. 04/06/18 Patient seen today for follow-up of her dementia with behavioral disturbance the patient had been aggressive and violent with EMS transport. Suspect patient's infection could also be contributing to her acute delirium due to metabolic encephalopathy the from her urinary tract infection Per psychiatrist medication recommendations were implemented. Patient is calm today and 2 point soft restraints had 1 dose of Haldol today. 04/07/18 Patient seen today for follow-up of her dementia. Patient is awake alert resting in bed reading a book. Patient has been started BuSpar and Depakote. Patient is still in 2 points restraints. Discontinue restraints with a sitter at bedside. Reason For Visit: AGITATION/DELIRIUM/UTI Physical Exam Vital Signs: Temp Pulse Resp BP Pulse Ox 99.2 F 106 H 16 156/73 H 98 04/07/18 18:52 04/07/18 18:52 04/07/18 18:52 04/07/18 18:52 04/07/18 18:52 Intake & Output 04/06/18 04/07/18 04/08/18 06:59 06:59 06:59 Intake Total 668 356 118 Output Total 6930 850 Balance -1932 -494 118 Weight 132 lb 0.91 oz 144 lb 2.917 oz General appearance: PRESENT: no acute distress, cooperative Respiratory exam: PRESENT: rhonchi, wheezes. ABSENT: clear to auscultation iram Cardiovascular exam: PRESENT: RRR GI/Abdominal exam: PRESENT: normal bowel sounds, soft. ABSENT: distended, guarding, tenderness Neurological exam: PRESENT: alert, awake, oriented to person, oriented to place , oriented to time, oriented to situation, CN II-XII grossly intact. ABSENT: altered Results Laboratory Results: 04/07/18 04:31 04/07/18 04:31 04/07/18 04/07/18 04:31 04:31 WBC 7.4 RBC 3.89 Hgb 12.2 Hct 35.1 L MCV 90 MCH 31.5 MCHC 34.8 RDW 13.2 Plt Count 183 Seg Neutrophils % 70.1 Lymphocytes % 19.4 Monocytes % 6.6 Eosinophils % 2.7 Basophils % 1.2 Absolute Neutrophils 5.2 Absolute Lymphocytes 1.4 Absolute Monocytes 0.5 Absolute Eosinophils 0.2 Absolute Basophils 0.1 Sodium 144.1 Potassium 3.4 L Chloride 105 Carbon Dioxide 31 H Anion Gap 8 BUN 8 Creatinine 0.69 Est GFR ( Amer) > 60 Est GFR (Non-Af Amer) > 60 Glucose 93 Calcium 8.5 Phosphorus 3.0 Magnesium 1.9 Impressions: Chest CT 04/04/18 00:00 IMPRESSION: Persistent partial atelectasis in the right upper lobe. Chest X-Ray 04/04/18 16:40 IMPRESSION: NO ACUTE RADIOGRAPHIC FINDING IN THE CHEST. Head CT 04/04/18 17:13 IMPRESSION: MILD CHRONIC CHANGES OF ATROPHY AND MICROVASCULAR ISCHEMIA. NO ACUTE PROCESS. EVIDENCE OF ACUTE STROKE: NO. Assessment & Plan - Diagnosis (1) Metabolic encephalopathy Is this a current diagnosis for this admission?: Yes Plan: Attribute mental status due to metabolic encephalopathy related to her urinary tract infection. Clinically patient is improving antibiotics will be changed to p.o. tomorrow. Sitter continued at bedside for safety will remove restraints tonight. (2) UTI (urinary tract infection) Qualifiers: Urinary tract infection type: acute cystitis Hematuria presence: with hematuria Qualified Code(s): N30.01 - Acute cystitis with hematuria Is this a current diagnosis for this admission?: Yes Plan: Continue antibiotic therapy until culture and sensitivities resulted. Antibiotics will be changed to p.o. in a.m. Patient to be discharged in the morning case management on board. (3) Requires restraints for safety Is this a current diagnosis for this admission?: Yes Plan: Two-point restraints for safety to be discontinued tonight. We will keep sitter at bedside for monitoring. (4) Hypophosphatemia Is this a current diagnosis for this admission?: Yes Plan: Patient given IV phosphorus today. Level of phosphorus is normal. Potassium mildly low will to new patients potassium chloride. (5) Hypokalemia Is this a current diagnosis for this admission?: Yes Plan: Hypokalemia is corrected patient restarted on her potassium chloride supplementation. Attribute this ongoing hypokalemia due to patient's hydrochlorothiazide and decreased p.o. intake. - Time Time Spent with patient: Less than 15 minutes - Inpatient Certification Based on my medical assessment, after consideration of the patient's comorbidities, presenting symptoms, or acuity I expect that the services needed warrant INPATIENT care.: Yes I certify that my determination is in accordance with my understanding of Medicare's requirements for reasonable and necessary INPATIENT services [42 CFR 412.3e].: Yes Medical Necessity: Need Close Monitoring Due to Risk of Patient Decompensation, Need for Neurological Checks
[2018-04-08] MEDS: LANSOPRAZOLE 15 MG TAB.RAP.DR PO SCH (06:03)
[2018-04-08] MEDS: DIVALPROEX SODIUM 250 MG TABLET.DR PO SCH ×2 (06:03→18:06)
[2018-04-08] MEDS: BUSPIRONE HCL 10 MG TABLET PO SCH ×2 (06:03→18:06)
[2018-04-08] MEDS: ENOXAPARIN SODIUM INJ 30 MG/0.3 ML DISP.SYRIN SUBCUT SCH (09:16)
[2018-04-08] MEDS: LISINOPRIL 10 MG TABLET PO SCH (09:16)
[2018-04-08] MEDS: CHOLECALCIFEROL (D3) 1,000 UNIT TABLET PO SCH (09:16)
[2018-04-08] MEDS: BUDESONIDE/FORMOTEROL 160-4.5 MCG 60 PUFF/6 GM MDI IH SCH ×2 (09:17→21:26)
[2018-04-08 09:18] LABS: ABSOLUTE BASOPHILS # (AUTO) 0.1 10^3/uL (0.0-0.2); ABSOLUTE EOSINOPHILS # (AUTO) 0.2 10^3/uL (0.0-0.6); ABSOLUTE LYMPHOCYTES (AUTO) 1.3 10^3/uL (0.5-4.7); ABSOLUTE MONOCYTES (AUTO) 0.4 10^3/uL (0.1-1.4); ABSOLUTE NEUT (AUTO) 5.3 10^3/uL (1.7-8.2); BASOPHILS % (AUTO) 1.1 % (0-2); EOSINOPHILS % (AUTO) 2.1 % (0-6); HEMATOCRIT 38.3 % (36.0-47.0); HEMOGLOBIN 13.1 g/dL (12.0-15.5); LYMPHOCYTES % (AUTO) 17.3 % (13-45); MEAN CORPUSCULAR HEMOGLOBIN 31.2 pg (27.0-33.4); MEAN CORPUSCULAR HGB CONC 34.1 g/dL (32.0-36.0); MEAN CORPUSCULAR VOLUME 91 fl (80-97); MONOCYTES % (AUTO) 6.1 % (3-13); PLATELET COUNT 203 10^3/uL (150-450); RED BLOOD COUNT 4.19 10^6/uL (3.72-5.28); RED CELL DISTRIBUTION WIDTH 13.5 % (11.5-14.0); SEGMENTED NEUTROPHILS % (AUTO) 73.4 % (42-78); TOTAL CELLS COUNTED % (AUTO) 100 %; WHITE BLOOD COUNT 7.3 10^3/uL (4.0-10.5)
[2018-04-08] MEDS: HYDROCHLOROTHIAZIDE 25 MG TABLET PO SCH (09:18)
[2018-04-08] MEDS: ASPIRIN 81 MG TABLET, ENT COATED PO SCH (09:19)
[2018-04-08 09:34] LABS: ALANINE AMINOTRANSFERASE 24 U/L (9-52); ALBUMIN 2.9 g/dL (3.5-5.0); ALKALINE PHOSPHATASE 69 U/L (38-126); ANION GAP 8 (5-19); ASPARTATE AMINO TRANSFERASE 18 U/L (14-36); BILIRUBIN,DIRECT 0.3 mg/dL (0.0-0.4); BILIRUBIN,TOTAL 0.5 mg/dL (0.2-1.3); BLOOD UREA NITROGEN 9 mg/dL (7-20); CALCIUM 9.3 mg/dL (8.4-10.2); CARBON DIOXIDE 36 mmol/L (22-30); CHLORIDE 101 mmol/L (98-107); GLUCOSE 89 mg/dL (75-110); POTASSIUM 3.3 mmol/L (3.6-5.0); SODIUM 144.7 mmol/L (137-145); TOTAL PROTEIN 5.4 g/dL (6.3-8.2)
[2018-04-08] MEDS ORDERED: POTASSI CL 20 MEQ/50 ML RIDER 20 MEQ/50 ML RTUPB IV ONE (17:00)
--- NOTE | 2018-04-08 17:02 | PDOC PROGRESS REPORT ---
Subjective Progress Note for:: 04/08/18 Subjective:: Patient seen today for follow-up for her agitation delirium on chronic dementia. Psychiatry also has been consulted. Overnight patient provided antibiotic supportive care. Patient did require soft restraints with a sitter for safety. Today his son and spouse are at bedside. Her keen to discuss options for patient's medical condition and placement. Per is not able to take care of her patient is not safe and he feels that patient is at risk to hurt herself or somebody else. We will get case management on board and senior media planner. 04/06/18 Patient seen today for follow-up of her dementia with behavioral disturbance the patient had been aggressive and violent with EMS transport. Suspect patient's infection could also be contributing to her acute delirium due to metabolic encephalopathy the from her urinary tract infection Per psychiatrist medication recommendations were implemented. Patient is calm today and 2 point soft restraints had 1 dose of Haldol today. 04/07/18 Patient seen today for follow-up of her dementia. Patient is awake alert resting in bed reading a book. Patient has been started BuSpar and Depakote. Patient is still in 2 points restraints. Discontinue restraints with a sitter at bedside. 04/08/18 pt seen tday for f/u or her encepahlopathy. Patient is not on restraints is resting comfortably in bed. discussed with the heel caser options of her discharge. The PCL and CMP are within normal limits low potassium has been replaced. Reason For Visit: AGITATION/DELIRIUM/UTI Physical Exam Vital Signs: Temp Pulse Resp BP Pulse Ox 98.9 F 97 16 113/58 L 95 04/08/18 12:00 04/08/18 12:00 04/08/18 12:00 04/08/18 08:00 04/08/18 12:00 Intake & Output 04/07/18 04/08/18 04/09/18 06:59 06:59 06:59 Intake Total 356 118 Output Total 850 1100 Balance -494 -982 Weight 144 lb 2.917 oz 142 lb 3.17 oz General appearance: PRESENT: no acute distress, cooperative Head exam: PRESENT: atraumatic, normocephalic Eye exam: PRESENT: EOMI Ear exam: PRESENT: normal external ear exam Respiratory exam: PRESENT: clear to auscultation iram Cardiovascular exam: PRESENT: RRR GI/Abdominal exam: PRESENT: normal bowel sounds, soft. ABSENT: tenderness Neurological exam: PRESENT: alert, awake, oriented to person, CN II-XII grossly intact Results Laboratory Results: 04/08/18 08:43 04/08/18 08:43 04/08/18 04/08/18 08:43 08:43 WBC 7.3 RBC 4.19 Hgb 13.1 Hct 38.3 MCV 91 MCH 31.2 MCHC 34.1 RDW 13.5 Plt Count 203 Seg Neutrophils % 73.4 Lymphocytes % 17.3 Monocytes % 6.1 Eosinophils % 2.1 Basophils % 1.1 Absolute Neutrophils 5.3 Absolute Lymphocytes 1.3 Absolute Monocytes 0.4 Absolute Eosinophils 0.2 Absolute Basophils 0.1 Sodium 144.7 Potassium 3.3 L Chloride 101 Carbon Dioxide 36 H Anion Gap 8 BUN 9 Creatinine 0.77 Est GFR ( Amer) > 60 Est GFR (Non-Af Amer) > 60 Glucose 89 Calcium 9.3 Phosphorus 3.0 Magnesium 2.0 Total Bilirubin 0.5 AST 18 ALT 24 Alkaline Phosphatase 69 Total Protein 5.4 L Albumin 2.9 L Impressions: Chest CT 04/04/18 00:00 IMPRESSION: Persistent partial atelectasis in the right upper lobe. Chest X-Ray 04/04/18 16:40 IMPRESSION: NO ACUTE RADIOGRAPHIC FINDING IN THE CHEST. Head CT 04/04/18 17:13 IMPRESSION: MILD CHRONIC CHANGES OF ATROPHY AND MICROVASCULAR ISCHEMIA. NO ACUTE PROCESS. EVIDENCE OF ACUTE STROKE: NO. Assessment & Plan - Diagnosis (1) Metabolic encephalopathy Is this a current diagnosis for this admission?: Yes Plan: Encephalopathy is improving. (2) UTI (urinary tract infection) Qualifiers: Urinary tract infection type: acute cystitis Hematuria presence: with hematuria Qualified Code(s): N30.01 - Acute cystitis with hematuria Is this a current diagnosis for this admission?: Yes Plan: Continue antibiotic therapy . We will start patient on Macrobid. (3) Requires restraints for safety Is this a current diagnosis for this admission?: Yes Plan: Two-point restraints for safety to be discontinued tonight. Restraints removed patient stable and doing well (4) Hypophosphatemia Is this a current diagnosis for this admission?: Yes Plan: Hypophosphatemia resolved potassium is low we will give patient potassium. (5) Hypokalemia Is this a current diagnosis for this admission?: Yes Plan: Hypokalemia is corrected patient given potassium chloride 20 mEq IV 1 - Time Time Spent with patient: Less than 15 minutes Within: within 24 hours - Inpatient Certification Based on my medical assessment, after consideration of the patient's comorbidities, presenting symptoms, or acuity I expect that the services needed warrant INPATIENT care.: Yes I certify that my determination is in accordance with my understanding of Medicare's requirements for reasonable and necessary INPATIENT services [42 CFR 412.3e].: Yes Medical Necessity: Need Close Monitoring Due to Risk of Patient Decompensation
[2018-04-08] MEDS: NITROFURANTOIN MONOHYD/M-CRYST 100 MG CAPSULE PO SCH (18:06)
[2018-04-08] MEDS: ATORVASTATIN CALCIUM 10 MG TABLET PO SCH (21:26)
[2018-04-08] MEDS: DONEPEZIL HCL 5 MG TABLET PO SCH (21:26)
[2018-04-09] MEDS: DIVALPROEX SODIUM 250 MG TABLET.DR PO SCH ×2 (05:32→18:29)
[2018-04-09] MEDS: NITROFURANTOIN MONOHYD/M-CRYST 100 MG CAPSULE PO SCH ×2 (05:32→18:30)
[2018-04-09] MEDS: LANSOPRAZOLE 15 MG TAB.RAP.DR PO SCH (05:32)
[2018-04-09] MEDS: BUSPIRONE HCL 10 MG TABLET PO SCH ×2 (05:32→18:30)
[2018-04-09] MEDS: LISINOPRIL 10 MG TABLET PO SCH (10:11)
[2018-04-09] MEDS: CHOLECALCIFEROL (D3) 1,000 UNIT TABLET PO SCH (10:11)
[2018-04-09] MEDS: ASPIRIN 81 MG TABLET, ENT COATED PO SCH (10:12)
[2018-04-09] MEDS: HYDROCHLOROTHIAZIDE 25 MG TABLET PO SCH (10:12)
[2018-04-09] MEDS: ENOXAPARIN SODIUM INJ 30 MG/0.3 ML DISP.SYRIN SUBCUT SCH (10:12)
[2018-04-09] MEDS: BUDESONIDE/FORMOTEROL 160-4.5 MCG 60 PUFF/6 GM MDI IH SCH ×2 (10:14→21:33)
[2018-04-09] MEDS: DONEPEZIL HCL 5 MG TABLET PO SCH (21:33)
[2018-04-09] MEDS: ATORVASTATIN CALCIUM 10 MG TABLET PO SCH (21:33)
[2018-04-09] MEDS ORDERED: POTASSIUM CHLORIDE 10 MEQ CAPSULE.ER PO ONE (21:37)
--- NOTE | 2018-04-09 21:38 | PDOC PROGRESS REPORT ---
Subjective Progress Note for:: 04/09/18 Subjective:: Patient seen today for follow-up for her agitation delirium on chronic dementia. Psychiatry also has been consulted. Overnight patient provided antibiotic supportive care. Patient did require soft restraints with a sitter for safety. Today his son and spouse are at bedside. Her keen to discuss options for patient's medical condition and placement. Per is not able to take care of her patient is not safe and he feels that patient is at risk to hurt herself or somebody else. We will get case management on board and meeting planner. 04/06/18 Patient seen today for follow-up of her dementia with behavioral disturbance the patient had been aggressive and violent with EMS transport. Suspect patient's infection could also be contributing to her acute delirium due to metabolic encephalopathy the from her urinary tract infection Per psychiatrist medication recommendations were implemented. Patient is calm today and 2 point soft restraints had 1 dose of Haldol today. 04/07/18 Patient seen today for follow-up of her dementia. Patient is awake alert resting in bed reading a book. Patient has been started BuSpar and Depakote. Patient is still in 2 points restraints. Discontinue restraints with a sitter at bedside. 04/08/18 pt seen today for f/u or her encepahlopathy. Patient is not on restraints is resting comfortably in bed. discussed with the case management social worker options of her discharge. The PCL and CMP are within normal limits low potassium has been replaced. 04/09/18 Patient seen today for her metabolic encephalopathy related to her UTI. Is off of restraints sitter is not at bedside that there were no sitters available. Received report from nurse that patient seems to be having some swallowing difficulty We will evaluate if the swallowing difficulty is at all related or oropharyngeal dysphasia. We will start with ordering sleep study. We will also repeat a CT scan of her head. To rule out any acute CVA. Reason For Visit: AGITATION/DELIRIUM/UTI Physical Exam Vital Signs: Temp Pulse Resp BP Pulse Ox 99.0 F 109 H 19 124/45 L 96 04/09/18 19:47 04/09/18 19:47 04/09/18 19:47 04/09/18 19:47 04/09/18 19:47 Intake & Output 04/08/18 04/09/18 04/10/18 06:59 06:59 06:59 Intake Total 118 960 237 Output Total 1100 1500 775 Balance -982 -540 -538 Weight 142 lb 3.17 oz 119 lb 7.849 oz General appearance: ABSENT: cooperative - Patient was not cooperative today she was uttering profanities towards the aid and myself. Patient did let me auscultate her heart sounds and then started shouting to get out of the room. Head exam: PRESENT: atraumatic, normocephalic Eye exam: ABSENT: EOMI Cardiovascular exam: PRESENT: RRR GI/Abdominal exam: PRESENT: normal bowel sounds, soft. ABSENT: tenderness Neurological exam: PRESENT: alert, awake, CN II-XII grossly intact Psychiatric exam: PRESENT: agitated Results Laboratory Results: 04/08/18 08:43 04/08/18 08:43 Impressions: Chest CT 04/04/18 00:00 IMPRESSION: Persistent partial atelectasis in the right upper lobe. Chest X-Ray 04/04/18 16:40 IMPRESSION: NO ACUTE RADIOGRAPHIC FINDING IN THE CHEST. Assessment & Plan - Diagnosis (1) Metabolic encephalopathy Is this a current diagnosis for this admission?: Yes Plan: Encephalopathy is improving. Patient is calm and resting in bed. (2) Requires restraints for safety Is this a current diagnosis for this admission?: Yes Plan: Two-point restraints for safety to be discontinued tonight. Restraints removed patient stable and doing well (3) Dementia Qualifiers: Dementia type: unspecified type Dementia behavioral disturbance: with behavioral disturbance Qualified Code(s): F03.91 - Unspecified dementia with behavioral disturbance Is this a current diagnosis for this admission?: Yes Plan: Patient is agitated and uncooperative. We will start medication recommendation per psychiatry (4) UTI (urinary tract infection) Qualifiers: Urinary tract infection type: acute cystitis Hematuria presence: with hematuria Qualified Code(s): N30.01 - Acute cystitis with hematuria Is this a current diagnosis for this admission?: Yes Plan: Continue antibiotic therapy . We will start patient on Macrobid.
--- NOTE | 2018-04-09 22:59 | RADIOLOGY REPORT (SQ) ---
EXAM DESCRIPTION: CT HEAD WITHOUT COMPLETED DATE/TIME: 04/09/2018 8:02 pm REASON FOR STUDY: AMS COMPARISON: CT head 04/04/2018. TECHNIQUE: Axial images acquired through the brain without intravenous contrast. Images reviewed wi th bone, brain and subdural windows. Images stored on PACS. All CT scanners at this facility use dose modulation, iterative reconstruction, and/or weight based d osing when appropriate to reduce radiation dose to as low as reasonably achievable (ALARA). [facility]: Dose Right [facility]: CareDose [facility]: Dose Right [facility]: Teradose 4D [facility]: [employer] RADIATION DOSE: CT Rad equipment meets quality standard of care and radiation dose reduction techniq ues were employed. CTDIvol: 53.2 mGy. DLP: 991 mGy-cm. mGy. LIMITATIONS: None. FINDINGS: VENTRICLES: Prominent. CEREBRUM: No mass effect. No hemorrhage. No midline shift. Areas of low density in the white matte r most likely due to chronic micro-vascular ischemic change. No evidence for acute territorial infar ction. CEREBELLUM: No hemorrhage. No alteration of density. No evidence for acute infarction. EXTRAAXIAL SPACES: Age-related involutional change. No fluid collections. ORBITS AND GLOBE: Symmetrical contour of the globes. CALVARIUM: No depressed fracture. PARANASAL SINUSES: No air-fluid level. SOFT TISSUES: No hematoma. IMPRESSION: No acute intracranial hemorrhage or acute territorial infarct. Chronic changes of atrop hy and microvascular ischemia. EVIDENCE OF ACUTE STROKE: NO. COMMENT: Quality ID # [id number]: Final reports with documentation of one or more dose reduction techniques (e.g., Automated exposure control, adjustment of the mA and/or kV according to patient size, use of iterative reconstruction technique) TECHNICAL DOCUMENTATION: JOB ID: [id number] [employer]- All Rights Reserved Reading location - IP/workstation name: [email or web address]
[2018-04-10] MEDS ORDERED: POTASSIUM CHLORIDE 10 MEQ CAPSULE.ER PO ONE (06:00)
[2018-04-10] MEDS: DIVALPROEX SODIUM 250 MG TABLET.DR PO SCH ×2 (06:14→18:06)
[2018-04-10] MEDS: LANSOPRAZOLE 15 MG TAB.RAP.DR PO SCH (06:14)
[2018-04-10] MEDS: BUSPIRONE HCL 10 MG TABLET PO SCH ×2 (06:15→18:06)
[2018-04-10] MEDS: NITROFURANTOIN MONOHYD/M-CRYST 100 MG CAPSULE PO SCH ×2 (06:15→18:06)
[2018-04-10] MEDS: ENOXAPARIN SODIUM INJ 30 MG/0.3 ML DISP.SYRIN SUBCUT SCH ×2 (10:23→10:35)
[2018-04-10] MEDS: HYDROCHLOROTHIAZIDE 25 MG TABLET PO SCH (10:25)
[2018-04-10] MEDS: CHOLECALCIFEROL (D3) 1,000 UNIT TABLET PO SCH (10:25)
[2018-04-10] MEDS: ASPIRIN 81 MG TABLET, ENT COATED PO SCH (10:25)
[2018-04-10] MEDS: LISINOPRIL 10 MG TABLET PO SCH (10:25)
[2018-04-10] MEDS: BUDESONIDE/FORMOTEROL 160-4.5 MCG 60 PUFF/6 GM MDI IH SCH ×2 (10:26→23:00)
[2018-04-10] MEDS: RISPERIDONE 0.25 MG TABLET PO SCH (18:59)
[2018-04-10 20:51] LABS: BLOOD UREA NITROGEN 29 mg/dL (7-20); CALCIUM 10.2 mg/dL (8.4-10.2); CHLORIDE 92 mmol/L (98-107); GLUCOSE 136 mg/dL (75-110); PHOSPHORUS 3.3 mg/dL (2.5-4.5); POTASSIUM 3.2 mmol/L (3.6-5.0); SODIUM 141.7 mmol/L (137-145)
[2018-04-10 20:58] LABS: ANION GAP 10 (5-19)
[2018-04-10 21:04] LABS: CARBON DIOXIDE 40 mmol/L (22-30)
[2018-04-10] MEDS: DONEPEZIL HCL 5 MG TABLET PO SCH (22:59)
[2018-04-10] MEDS: ATORVASTATIN CALCIUM 10 MG TABLET PO SCH (22:59)
--- NOTE | 2018-04-10 23:55 | PDOC PROGRESS REPORT ---
Subjective Progress Note for:: 04/10/18 Subjective:: Patient seen today for follow-up for her agitation delirium on chronic dementia. Psychiatry also has been consulted. Overnight patient provided antibiotic supportive care. Patient did require soft restraints with a sitter for safety. Today his son and spouse are at bedside. Her keen to discuss options for patient's medical condition and placement. Per is not able to take care of her patient is not safe and he feels that patient is at risk to hurt herself or somebody else. We will get case management on board and turnaround planner. 04/06/18 Patient seen today for follow-up of her dementia with behavioral disturbance the patient had been aggressive and violent with EMS transport. Suspect patient's infection could also be contributing to her acute delirium due to metabolic encephalopathy the from her urinary tract infection Per psychiatrist medication recommendations were implemented. Patient is calm today and 2 point soft restraints had 1 dose of Haldol today. 04/07/18 Patient seen today for follow-up of her dementia. Patient is awake alert resting in bed reading a book. Patient has been started BuSpar and Depakote. Patient is still in 2 points restraints. Discontinue restraints with a sitter at bedside. 04/08/18 pt seen today for f/u or her encepahlopathy. Patient is not on restraints is resting comfortably in bed. discussed with the returned case inspector options of her discharge. The PCL and CMP are within normal limits low potassium has been replaced. 04/09/18 Patient seen today for her metabolic encephalopathy related to her UTI. Is off of restraints sitter is not at bedside that there were no sitters available. Received report from nurse that patient seems to be having some swallowing difficulty We will evaluate if the swallowing difficulty is at all related or oropharyngeal dysphasia. We will start with ordering sleep study. We will also repeat a CT scan of her head. To rule out any acute CVA. 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 Appreciate psychiatry input for patient's dementia and care. Plan is to check Depakote level as there is suspicion that the patient might not be very aggressive and resists exam and resists her next. Patient is awaiting placement she is medically stable. Reason For Visit: AGITATION/DELIRIUM/UTI Physical Exam Vital Signs: Temp Pulse Resp BP Pulse Ox 98.7 F 96 13 101/57 L 99 04/10/18 19:20 04/10/18 19:20 04/10/18 19:20 04/10/18 19:20 04/10/18 19:20 Intake & Output 04/09/18 04/10/18 04/11/18 06:59 06:59 06:59 Intake Total 960 621 118 Output Total 1500 1705 775 Balance -581 -5842 -700 Weight 119 lb 7.849 oz 137 lb 9.095 oz General appearance: PRESENT: no acute distress. ABSENT: cooperative Head exam: PRESENT: atraumatic, normocephalic Eye exam: PRESENT: EOMI Cardiovascular exam: PRESENT: RRR GI/Abdominal exam: PRESENT: normal bowel sounds, soft Neurological exam: PRESENT: alert, awake, oriented to person, CN II-XII grossly intact Results Laboratory Results: 04/08/18 08:43 04/10/18 20:25 04/10/18 20:25 Sodium 141.7 Potassium 3.2 L Chloride 92 L Carbon Dioxide 40 H* Anion Gap 10 BUN 29 H Creatinine 1.16 Est GFR ( Amer) 56 L Est GFR (Non-Af Amer) 46 L Glucose 136 H Calcium 10.2 Phosphorus 3.3 Magnesium 1.9 Impressions: Chest CT 04/04/18 00:00 IMPRESSION: Persistent partial atelectasis in the right upper lobe. Chest X-Ray 04/04/18 16:40 IMPRESSION: NO ACUTE RADIOGRAPHIC FINDING IN THE CHEST. Head CT 04/09/18 00:00 IMPRESSION: No acute intracranial hemorrhage or acute territorial infarct. Chronic changes of atrophy and microvascular ischemia. EVIDENCE OF ACUTE STROKE: NO. Assessment & Plan - Diagnosis (1) Dementia Qualifiers: Dementia type: unspecified type Dementia behavioral disturbance: with behavioral disturbance Qualified Code(s): F03.91 - Unspecified dementia with behavioral disturbance Is this a current diagnosis for this admission?: Yes Plan: Patient is agitated and uncooperative. We will start medication recommendation per psychiatry. We have added on risperidone will check Depakote level. (2) Metabolic encephalopathy Is this a current diagnosis for this admission?: Yes Plan: Suspect altered mental status and confusion related to UTI to be improving. Current behavioral disturbances are attributed to dementia and acute worsening. (3) Requires restraints for safety Is this a current diagnosis for this admission?: Yes Plan: Two-point restraints for safety to be discontinued tonight. Restraints removed patient stable and doing well (4) UTI (urinary tract infection) Qualifiers: Urinary tract infection type: acute cystitis Hematuria presence: with hematuria Qualified Code(s): N30.01 - Acute cystitis with hematuria Is this a current diagnosis for this admission?: Yes Plan: Continue antibiotic therapy . We will start patient on Macrobid.
[2018-04-11 00:03] LABS: ABSOLUTE BASOPHILS # (AUTO) 0.1 10^3/uL (0.0-0.2); ABSOLUTE EOSINOPHILS # (AUTO) 0.2 10^3/uL (0.0-0.6); ABSOLUTE LYMPHOCYTES (AUTO) 1.2 10^3/uL (0.5-4.7); ABSOLUTE MONOCYTES (AUTO) 0.6 10^3/uL (0.1-1.4); ABSOLUTE NEUT (AUTO) 6.2 10^3/uL (1.7-8.2); BASOPHILS % (AUTO) 1.3 % (0-2); HEMATOCRIT 41.5 % (36.0-47.0); HEMOGLOBIN 14.1 g/dL (12.0-15.5); LYMPHOCYTES % (AUTO) 14.6 % (13-45); MEAN CORPUSCULAR HEMOGLOBIN 31.3 pg (27.0-33.4); MEAN CORPUSCULAR VOLUME 92 fl (80-97); MONOCYTES % (AUTO) 7.5 % (3-13); PLATELET COUNT 227 10^3/uL (150-450); RED BLOOD COUNT 4.52 10^6/uL (3.72-5.28); RED CELL DISTRIBUTION WIDTH 13.8 % (11.5-14.0); SEGMENTED NEUTROPHILS % (AUTO) 74.6 % (42-78); TOTAL CELLS COUNTED % (AUTO) 100 %; WHITE BLOOD COUNT 8.3 10^3/uL (4.0-10.5)
[2018-04-11 05:53] LABS: APPEARANCE,URINE CLEAR; BILIRUBIN,URINE NEGATIVE (NEGATIVE); COLOR,URINE YELLOW; GLUCOSE, URINE NEGATIVE (NEGATIVE); KETONES,URINE 20 mg/dL (NEGATIVE); LEUKOCYTE ESTERASE,URINE NEGATIVE (NEGATIVE); NITRITE,URINE NEGATIVE (NEGATIVE); PROTEIN,URINE 30 mg/dL (NEGATIVE); URINE SPECIFIC GRAVITY 1.024; UROBILINOGEN,URINE NEGATIVE mg/dL (<2.0)
[2018-04-11] MEDS: RISPERIDONE 0.25 MG TABLET PO SCH ×2 (06:05→18:00)
[2018-04-11] MEDS: DIVALPROEX SODIUM 250 MG TABLET.DR PO SCH ×2 (06:05→18:00)
[2018-04-11] MEDS: LANSOPRAZOLE 15 MG TAB.RAP.DR PO SCH (06:05)
[2018-04-11] MEDS: BUSPIRONE HCL 10 MG TABLET PO SCH ×2 (06:05→18:00)
[2018-04-11] MEDS: NITROFURANTOIN MONOHYD/M-CRYST 100 MG CAPSULE PO SCH (06:05)
[2018-04-11 08:38] LABS: ANION GAP 11 (5-19); BLOOD UREA NITROGEN 41 mg/dL (7-20); CALCIUM 10.4 mg/dL (8.4-10.2); CARBON DIOXIDE 37 mmol/L (22-30); CHLORIDE 93 mmol/L (98-107); GLUCOSE 93 mg/dL (75-110); PHOSPHORUS 4.2 mg/dL (2.5-4.5); POTASSIUM 3.5 mmol/L (3.6-5.0); SODIUM 140.7 mmol/L (137-145)
[2018-04-11] MEDS: ENOXAPARIN SODIUM INJ 30 MG/0.3 ML DISP.SYRIN SUBCUT SCH (09:20)
[2018-04-11] MEDS: ASPIRIN 81 MG TABLET, ENT COATED PO SCH (09:46)
[2018-04-11] MEDS: HYDROCHLOROTHIAZIDE 25 MG TABLET PO SCH (09:46)
[2018-04-11] MEDS: TRAZODONE HCL 50 MG TABLET PO SCH ×3 (09:47→18:00)
[2018-04-11] MEDS: BUDESONIDE/FORMOTEROL 160-4.5 MCG 60 PUFF/6 GM MDI IH SCH ×2 (09:47→22:21)
[2018-04-11] MEDS: CHOLECALCIFEROL (D3) 1,000 UNIT TABLET PO SCH (09:47)
[2018-04-11] MEDS: LISINOPRIL 10 MG TABLET PO SCH (11:34)
--- NOTE | 2018-04-11 19:47 | PDOC PROGRESS REPORT ---
Subjective Progress Note for:: 04/11/18 Subjective:: The patient is resting in her bed. She remains somewhat combative with the staff. Her was at the bedside. We are going to try new medication regimen today and he is agreeable to trying just about anything to get her stabilized. Review of systems cannot be obtained from the patient Reason For Visit: AGITATION/DELIRIUM/UTI Physical Exam Vital Signs: Temp Pulse Resp BP Pulse Ox 99.0 F 112 H 15 118/53 L 98 04/10/18 23:02 04/11/18 15:18 04/11/18 15:18 04/11/18 15:18 04/11/18 00:41 Intake & Output 04/10/18 04/11/18 04/12/18 06:59 06:59 06:59 Intake Total 621 118 355 Output Total 1675 775 425 Balance -1054 -657 -70 Weight 62.4 kg General appearance: PRESENT: disheveled, other - Significantly confused. She would try to hit me or pinch me if I got too close to her. Head exam: PRESENT: atraumatic, normocephalic Respiratory exam: PRESENT: clear to auscultation iram. ABSENT: rales, rhonchi, wheezes Cardiovascular exam: PRESENT: RRR. ABSENT: diastolic murmur, rubs, systolic murmur GI/Abdominal exam: PRESENT: other Neurological exam: PRESENT: alert, awake, other Psychiatric exam: PRESENT: agitated, other - Combative if you get near her Skin exam: PRESENT: dry, intact, warm. ABSENT: cyanosis, rash Results Laboratory Results: 04/10/18 20:25 04/11/18 07:43 04/10/18 04/10/18 04/11/18 20:25 20:25 04:50 WBC 8.3 RBC 4.52 Hgb 14.1 Hct 41.5 MCV 92 MCH 31.3 MCHC 34.0 RDW 13.8 Plt Count 227 Seg Neutrophils % 74.6 Lymphocytes % 14.6 Monocytes % 7.5 Eosinophils % 2.0 Basophils % 1.3 Absolute Neutrophils 6.2 Absolute Lymphocytes 1.2 Absolute Monocytes 0.6 Absolute Eosinophils 0.2 Absolute Basophils 0.1 Sodium 141.7 Potassium 3.2 L Chloride 92 L Carbon Dioxide 40 H* Anion Gap 10 BUN 29 H Creatinine 1.16 Est GFR ( Amer) 56 L Est GFR (Non-Af Amer) 46 L Glucose 136 H Calcium 10.2 Phosphorus 3.3 Magnesium 1.9 Urine Color YELLOW Urine Appearance CLEAR Urine pH 5.0 Ur Specific [place] 1.024 Urine Protein 30 H Urine Glucose (UA) NEGATIVE Urine Ketones 20 H Urine Blood SMALL H Urine Nitrite NEGATIVE Ur Leukocyte Esterase NEGATIVE Urine WBC (Auto) 4 Urine RBC (Auto) 36 04/11/18 07:43 WBC RBC Hgb Hct MCV MCH MCHC RDW Plt Count Seg Neutrophils % Lymphocytes % Monocytes % Eosinophils % Basophils % Absolute Neutrophils Absolute Lymphocytes Absolute Monocytes Absolute Eosinophils Absolute Basophils Sodium 140.7 Potassium 3.5 L Chloride 93 L Carbon Dioxide 37 H Anion Gap 11 BUN 41 H Creatinine 0.97 Est GFR ( Amer) > 60 Est GFR (Non-Af Amer) 57 L Glucose 93 Calcium 10.4 H Phosphorus 4.2 Magnesium 2.1 Urine Color Urine Appearance Urine pH Ur Specific [place] Urine Protein Urine Glucose (UA) Urine Ketones Urine Blood Urine Nitrite Ur Leukocyte Esterase Urine WBC (Auto) Urine RBC (Auto) Impressions: Chest CT 04/04/18 00:00 IMPRESSION: Persistent partial atelectasis in the right upper lobe. Chest X-Ray 04/04/18 16:40 IMPRESSION: NO ACUTE RADIOGRAPHIC FINDING IN THE CHEST. Head CT 04/09/18 00:00 IMPRESSION: No acute intracranial hemorrhage or acute territorial infarct. Chronic changes of atrophy and microvascular ischemia. EVIDENCE OF ACUTE STROKE: NO. Assessment & Plan - Diagnosis (1) Acute encephalopathy Is this a current diagnosis for this admission?: Yes Plan: The patient's acute encephalopathy was due to a urinary tract infection. She has advanced dementia at baseline with behavioral disturbances. I believe she is about back to her cognitive baseline per the family. (2) Urinary tract infection Is this a current diagnosis for this admission?: Yes Plan: She is completed a course of antibiotic therapy. She had a Citrobacter urinary tract infection (3) Dementia with behavioral disturbance Is this a current diagnosis for this admission?: Yes Plan: Psychiatry recommended avoiding Haldol as well as Ativan. We are going to try her on a regimen of 25 mg of trazodone every 8 hours with 100 mg at night. We will see if this makes any difference. We may have to use some Haldol or some other kind of antipsychotic medication to get her behavior under better control so that she can be discharged to a skilled facility. She will require permanent placement. (4) Hyperlipidemia Is this a current diagnosis for this admission?: Yes Plan: Continue statin medication (5) Hypertension Is this a current diagnosis for this admission?: Yes Plan: Continue hydrochlorothiazide and lisinopril (6) COPD (chronic obstructive pulmonary disease) Is this a current diagnosis for this admission?: Yes Plan: No evidence of exacerbation (7) Hypercalcemia Is this a current diagnosis for this admission?: Yes Plan: Likely due to mild dehydration. Her level is been normal during this entire hospitalization until today. I doubt that she would leave an IV running. I am going to encourage the to get her to drink plenty of fluids today. (8) Hypokalemia Is this a current diagnosis for this admission?: Yes Plan: Repleted. She will have a level checked in the morning. (9) Full code status Is this a current diagnosis for this admission?: Yes - Time Time Spent with patient: 25-34 minutes - Inpatient Certification Medical Necessity: Other - Inpatient hospitalization remains necessary for disposition. At this point the patient is going to require placement in a skilled facility as the patient's cannot care for her at home. We are going to try different medication regimen today to see if we can get her behavior under better control. The discharge planners are working on a skilled facility.
[2018-04-11] MEDS ORDERED: TRAZODONE HCL 50 MG TABLET PO SCH (22:00)
[2018-04-11] MEDS: DONEPEZIL HCL 5 MG TABLET PO SCH (22:21)
[2018-04-11] MEDS: ATORVASTATIN CALCIUM 10 MG TABLET PO SCH (22:21)
[2018-04-12] MEDS: RISPERIDONE 0.25 MG TABLET PO SCH ×2 (06:29→18:01)
[2018-04-12] MEDS: BUSPIRONE HCL 10 MG TABLET PO SCH ×2 (06:29→18:01)
[2018-04-12] MEDS: LANSOPRAZOLE 15 MG TAB.RAP.DR PO SCH (06:29)
[2018-04-12] MEDS: DIVALPROEX SODIUM 250 MG TABLET.DR PO SCH ×2 (06:29→18:01)
[2018-04-12 06:47] LABS: ABSOLUTE BASOPHILS # (AUTO) 0.1 10^3/uL (0.0-0.2); ABSOLUTE EOSINOPHILS # (AUTO) 0.2 10^3/uL (0.0-0.6); ABSOLUTE LYMPHOCYTES (AUTO) 1.4 10^3/uL (0.5-4.7); ABSOLUTE MONOCYTES (AUTO) 0.5 10^3/uL (0.1-1.4); ABSOLUTE NEUT (AUTO) 3.7 10^3/uL (1.7-8.2); EOSINOPHILS % (AUTO) 3.9 % (0-6); HEMATOCRIT 37.6 % (36.0-47.0); HEMOGLOBIN 13.1 g/dL (12.0-15.5); MEAN CORPUSCULAR HEMOGLOBIN 31.6 pg (27.0-33.4); MEAN CORPUSCULAR HGB CONC 34.9 g/dL (32.0-36.0); MEAN CORPUSCULAR VOLUME 91 fl (80-97); MONOCYTES % (AUTO) 8.9 % (3-13); PLATELET COUNT 165 10^3/uL (150-450); RED BLOOD COUNT 4.16 10^6/uL (3.72-5.28); RED CELL DISTRIBUTION WIDTH 13.7 % (11.5-14.0); SEGMENTED NEUTROPHILS % (AUTO) 62.2 % (42-78); TOTAL CELLS COUNTED % (AUTO) 100 %
[2018-04-12 07:07] LABS: ALANINE AMINOTRANSFERASE 32 U/L (9-52); ALBUMIN 2.8 g/dL (3.5-5.0); ALKALINE PHOSPHATASE 53 U/L (38-126); ASPARTATE AMINO TRANSFERASE 26 U/L (14-36); BILIRUBIN,DIRECT 0.2 mg/dL (0.0-0.4); BILIRUBIN,TOTAL 0.6 mg/dL (0.2-1.3); BLOOD UREA NITROGEN 35 mg/dL (7-20); CALCIUM 9.4 mg/dL (8.4-10.2); CHLORIDE 90 mmol/L (98-107); GLUCOSE 87 mg/dL (75-110); POTASSIUM 3.3 mmol/L (3.6-5.0); SODIUM 139.1 mmol/L (137-145); TOTAL PROTEIN 5.2 g/dL (6.3-8.2)
[2018-04-12 07:50] LABS: ANION GAP 8 (5-19)
[2018-04-12 07:51] LABS: CARBON DIOXIDE 41 mmol/L (22-30)
[2018-04-12] MEDS: ENOXAPARIN SODIUM INJ 30 MG/0.3 ML DISP.SYRIN SUBCUT SCH (10:18)
[2018-04-12] MEDS: CHOLECALCIFEROL (D3) 1,000 UNIT TABLET PO SCH (10:27)
[2018-04-12] MEDS: TRAZODONE HCL 50 MG TABLET PO SCH ×2 (10:27→13:04)
[2018-04-12] MEDS: HYDROCHLOROTHIAZIDE 25 MG TABLET PO SCH (10:27)
[2018-04-12] MEDS: BUDESONIDE/FORMOTEROL 160-4.5 MCG 60 PUFF/6 GM MDI IH SCH (10:28)
[2018-04-12] MEDS: ASPIRIN 81 MG TABLET, ENT COATED PO SCH (10:28)
[2018-04-12] MEDS: LISINOPRIL 10 MG TABLET PO SCH (17:14)
--- NOTE | 2018-04-12 17:36 | PDOC PROGRESS REPORT ---
Subjective Progress Note for:: 04/12/18 Subjective:: The patient is an unfortunate 72-year-old female with advanced dementia. She has been taking care of at home by her . She has become increasingly difficult and combative. Prior to admission she got significantly worse and she was brought to the hospital. She was found to have evidence of a urinary tract infection. This is being appropriately treated and she has improved however her mental status waxes and wanes and she has intermittent episodes of combativeness with staff. Psychiatry is been consulted and recommended staying away from antipsychotics and benzodiazepines. She had been started on a regimen but is still having issues. Psychiatry called me today and recommended adding the clonidine patch to her regimen and I am going to follow the recommendations. I did tell them that due to her difficult to control behavior she may very well end up requiring some medication such as Haldol. Yesterday I had started her on a regimen that our psychiatrist in [place] recommends in these patients which was trazodone 25 mg 3 times daily with a higher dose at bedtime. We tried that yesterday. She is somewhat better but is quite sleepy. She slept through her breakfast this morning. At the recommendation of psychiatry am going to stop this today. Overall the patient is going to need permanent placement. The discharge planners are working on this. A review of systems could not be obtained from the patient. Reason For Visit: AGITATION/DELIRIUM/UTI Physical Exam Vital Signs: Temp Pulse Resp BP Pulse Ox 97.6 F 115 H 16 131/72 H 95 04/12/18 12:00 04/12/18 12:00 04/12/18 12:00 04/12/18 12:00 04/12/18 12:00 Intake & Output 04/11/18 04/12/18 04/13/18 06:59 06:59 06:59 Intake Total 118 355 200 Output Total 775 425 Balance -657 -70 200 General appearance: PRESENT: disheveled Respiratory exam: PRESENT: clear to auscultation iram. ABSENT: rales, rhonchi, wheezes Cardiovascular exam: PRESENT: RRR. ABSENT: diastolic murmur, rubs, systolic murmur GI/Abdominal exam: PRESENT: normal bowel sounds, soft. ABSENT: distended, guarding, mass, organolmegaly, rebound, tenderness Neurological exam: PRESENT: alert, awake, oriented to person. ABSENT: oriented to place, oriented to time, oriented to situation Psychiatric exam: PRESENT: other - She appears calm and somewhat sleepy this morning. Skin exam: PRESENT: dry, intact, warm. ABSENT: cyanosis, rash Results Laboratory Results: 04/12/18 06:25 04/12/18 06:25 04/12/18 04/12/18 06:25 06:25 WBC 6.0 RBC 4.16 Hgb 13.1 Hct 37.6 MCV 91 MCH 31.6 MCHC 34.9 RDW 13.7 Plt Count 165 Seg Neutrophils % 62.2 Lymphocytes % 24.0 Monocytes % 8.9 Eosinophils % 3.9 Basophils % 1.0 Absolute Neutrophils 3.7 Absolute Lymphocytes 1.4 Absolute Monocytes 0.5 Absolute Eosinophils 0.2 Absolute Basophils 0.1 Sodium 139.1 Potassium 3.3 L Chloride 90 L Carbon Dioxide 41 H* Anion Gap 8 BUN 35 H Creatinine 0.89 Est GFR ( Amer) > 60 Est GFR (Non-Af Amer) > 60 Glucose 87 Calcium 9.4 Magnesium 2.0 Total Bilirubin 0.6 AST 26 ALT 32 Alkaline Phosphatase 53 Total Protein 5.2 L Albumin 2.8 L Impressions: Chest CT 04/04/18 00:00 IMPRESSION: Persistent partial atelectasis in the right upper lobe. Chest X-Ray 04/04/18 16:40 IMPRESSION: NO ACUTE RADIOGRAPHIC FINDING IN THE CHEST. Head CT 04/09/18 00:00 IMPRESSION: No acute intracranial hemorrhage or acute territorial infarct. Chronic changes of atrophy and microvascular ischemia. EVIDENCE OF ACUTE STROKE: NO. Assessment & Plan - Diagnosis (1) Acute encephalopathy Is this a current diagnosis for this admission?: Yes Plan: The patient's acute encephalopathy was due to a urinary tract infection. She has advanced dementia at baseline with behavioral disturbances. I believe she is about back to her cognitive baseline per the family. (2) Urinary tract infection Is this a current diagnosis for this admission?: Yes Plan: She is completed a course of antibiotic therapy. She had a Citrobacter urinary tract infection (3) Dementia with behavioral disturbance Is this a current diagnosis for this admission?: Yes Plan: Psychiatry recommended avoiding Haldol as well as Ativan. I am going to stop the trazodone regimen. Will place her on clonidine as recommended by psychiatry. (4) Hyperlipidemia Is this a current diagnosis for this admission?: Yes (5) Hypertension Is this a current diagnosis for this admission?: Yes (6) COPD (chronic obstructive pulmonary disease) Is this a current diagnosis for this admission?: Yes (7) Hypercalcemia Is this a current diagnosis for this admission?: Yes Plan: The pushed fluids yesterday. Her level is normal. This was likely due to dehydration. (8) Hypokalemia Is this a current diagnosis for this admission?: Yes (9) Full code status Is this a current diagnosis for this admission?: Yes - Time Time Spent with patient: 25-34 minutes - Inpatient Certification Medical Necessity: Other - Inpatient hospitalization remains necessary for disposition. While we are waiting for a bed to be found we are going to work on titrating her medication regimen. Overall she is much improved since she came in the hospital.
[2018-04-13] MEDS: DONEPEZIL HCL 5 MG TABLET PO SCH ×2 (00:34→23:22)
[2018-04-13] MEDS: ATORVASTATIN CALCIUM 10 MG TABLET PO SCH ×2 (00:35→23:22)
[2018-04-13] MEDS: BUDESONIDE/FORMOTEROL 160-4.5 MCG 60 PUFF/6 GM MDI IH SCH ×3 (01:56→23:23)
[2018-04-13 05:19] LABS: ABSOLUTE BASOPHILS # (AUTO) 0.1 10^3/uL (0.0-0.2); ABSOLUTE EOSINOPHILS # (AUTO) 0.2 10^3/uL (0.0-0.6); ABSOLUTE LYMPHOCYTES (AUTO) 1.3 10^3/uL (0.5-4.7); ABSOLUTE MONOCYTES (AUTO) 0.6 10^3/uL (0.1-1.4); ABSOLUTE NEUT (AUTO) 4.5 10^3/uL (1.7-8.2); BASOPHILS % (AUTO) 0.8 % (0-2); EOSINOPHILS % (AUTO) 3.3 % (0-6); HEMATOCRIT 39.2 % (36.0-47.0); HEMOGLOBIN 13.6 g/dL (12.0-15.5); LYMPHOCYTES % (AUTO) 19.7 % (13-45); MEAN CORPUSCULAR HEMOGLOBIN 31.4 pg (27.0-33.4); MEAN CORPUSCULAR HGB CONC 34.7 g/dL (32.0-36.0); MEAN CORPUSCULAR VOLUME 91 fl (80-97); MONOCYTES % (AUTO) 8.6 % (3-13); PLATELET COUNT 171 10^3/uL (150-450); RED BLOOD COUNT 4.33 10^6/uL (3.72-5.28); RED CELL DISTRIBUTION WIDTH 13.8 % (11.5-14.0); SEGMENTED NEUTROPHILS % (AUTO) 67.6 % (42-78); TOTAL CELLS COUNTED % (AUTO) 100 %; WHITE BLOOD COUNT 6.6 10^3/uL (4.0-10.5)
[2018-04-13 05:42] LABS: ALANINE AMINOTRANSFERASE 32 U/L (9-52); ALKALINE PHOSPHATASE 62 U/L (38-126); ASPARTATE AMINO TRANSFERASE 28 U/L (14-36); BILIRUBIN,DIRECT 0.2 mg/dL (0.0-0.4); BILIRUBIN,TOTAL 0.5 mg/dL (0.2-1.3); BLOOD UREA NITROGEN 33 mg/dL (7-20); CALCIUM 9.6 mg/dL (8.4-10.2); CHLORIDE 89 mmol/L (98-107); GLUCOSE 96 mg/dL (75-110); POTASSIUM 3.3 mmol/L (3.6-5.0); SODIUM 138.2 mmol/L (137-145); TOTAL PROTEIN 5.6 g/dL (6.3-8.2)
[2018-04-13 06:29] LABS: ANION GAP 7 (5-19)
[2018-04-13 06:30] LABS: CARBON DIOXIDE 42 mmol/L (22-30)
[2018-04-13] MEDS: LANSOPRAZOLE 15 MG TAB.RAP.DR PO SCH (07:41)
[2018-04-13] MEDS: RISPERIDONE 0.25 MG TABLET PO SCH ×2 (07:41→17:36)
[2018-04-13] MEDS: BUSPIRONE HCL 10 MG TABLET PO SCH ×2 (07:41→17:36)
[2018-04-13] MEDS: DIVALPROEX SODIUM 250 MG TABLET.DR PO SCH ×2 (09:17→17:36)
[2018-04-13] MEDS: LISINOPRIL 10 MG TABLET PO SCH (09:26)
[2018-04-13] MEDS: ENOXAPARIN SODIUM INJ 30 MG/0.3 ML DISP.SYRIN SUBCUT SCH (09:26)
[2018-04-13] MEDS: ASPIRIN 81 MG TABLET, ENT COATED PO SCH (09:28)
[2018-04-13] MEDS: CHOLECALCIFEROL (D3) 1,000 UNIT TABLET PO SCH (09:28)
[2018-04-13] MEDS: HYDROCHLOROTHIAZIDE 25 MG TABLET PO SCH (09:29)
[2018-04-13 15:28] LABS: APPEARANCE,URINE SLIGHTLY-CLOUDY; BILIRUBIN,URINE NEGATIVE (NEGATIVE); COLOR,URINE YELLOW; GLUCOSE, URINE NEGATIVE (NEGATIVE); KETONES,URINE TRACE mg/dL (NEGATIVE); LEUKOCYTE ESTERASE,URINE TRACE (NEGATIVE); NITRITE,URINE NEGATIVE (NEGATIVE); PROTEIN,URINE NEGATIVE (NEGATIVE); URINE SPECIFIC GRAVITY 1.019; UROBILINOGEN,URINE NEGATIVE mg/dL (<2.0)
--- NOTE | 2018-04-13 18:40 | PDOC PROGRESS REPORT ---
Subjective Progress Note for:: 04/13/18 Subjective:: Patient awake, more interactive today. Answering simple questions and appears calm. She is unsteady on her feet. at bedside. Reason For Visit: AGITATION/DELIRIUM/UTI Physical Exam Vital Signs: Temp Pulse Resp BP Pulse Ox 97.6 F 92 16 117/40 L 95 04/12/18 12:00 04/13/18 08:29 04/13/18 08:29 04/13/18 08:29 04/12/18 12:00 Intake & Output 04/12/18 04/13/18 04/14/18 06:59 06:59 06:59 Intake Total 355 600 Output Total 425 1050 Balance -70 -450 Weight 62 kg General appearance: PRESENT: No acute distress Respiratory exam: PRESENT: clear to auscultation iram. ABSENT: rales, rhonchi, wheezes Cardiovascular exam: PRESENT: RRR. ABSENT: diastolic murmur, rubs, systolic murmur GI/Abdominal exam: PRESENT: normal bowel sounds, soft. ABSENT: distended, guarding, mass, organolmegaly, rebound, tenderness Neurological exam: PRESENT: alert, awake, oriented to person, knows her , follows simple commands. Has generalized weakness and unsteady on her feet. Psychiatric exam: PRESENT: other - She appears calm and not appearing sleepy today with adjustment of her medications. Skin exam: PRESENT: dry, intact, warm. ABSENT: cyanosis, rash Results Laboratory Results: 04/13/18 04:50 04/13/18 04:50 04/13/18 04/13/18 04/13/18 04:50 04:50 14:55 WBC 6.6 RBC 4.33 Hgb 13.6 Hct 39.2 MCV 91 MCH 31.4 MCHC 34.7 RDW 13.8 Plt Count 171 Seg Neutrophils % 67.6 Lymphocytes % 19.7 Monocytes % 8.6 Eosinophils % 3.3 Basophils % 0.8 Absolute Neutrophils 4.5 Absolute Lymphocytes 1.3 Absolute Monocytes 0.6 Absolute Eosinophils 0.2 Absolute Basophils 0.1 Sodium 138.2 Potassium 3.3 L Chloride 89 L Carbon Dioxide 42 H* Anion Gap 7 BUN 33 H Creatinine 0.89 Est GFR ( Amer) > 60 Est GFR (Non-Af Amer) > 60 Glucose 96 Calcium 9.6 Total Bilirubin 0.5 AST 28 ALT 32 Alkaline Phosphatase 62 Total Protein 5.6 L Albumin 3.0 L Urine Color YELLOW Urine Appearance SLIGHTLY-CLOUDY Urine pH 7.0 Ur Specific [place] 1.019 Urine Protein NEGATIVE Urine Glucose (UA) NEGATIVE Urine Ketones TRACE H Urine Blood NEGATIVE Urine Nitrite NEGATIVE Ur Leukocyte Esterase TRACE H Urine WBC (Auto) 7 Urine RBC (Auto) 8 Impressions: Chest CT 04/04/18 00:00 IMPRESSION: Persistent partial atelectasis in the right upper lobe. Chest X-Ray 04/04/18 16:40 IMPRESSION: NO ACUTE RADIOGRAPHIC FINDING IN THE CHEST. Head CT 04/09/18 00:00 IMPRESSION: No acute intracranial hemorrhage or acute territorial infarct. Chronic changes of atrophy and microvascular ischemia. EVIDENCE OF ACUTE STROKE: NO. Assessment & Plan - Plan Summary Plan Summary: (1) Acute encephalopathy Is this a current diagnosis for this admission?: Yes Plan: The patient's acute encephalopathy was due to a urinary tract infection. She also has advanced dementia at baseline with behavioral disturbances. She is more able to follow simple commands today. I believe she is about back to her cognitive baseline per the family. (2) Urinary tract infection Is this a current diagnosis for this admission?: Yes Plan: She is completed a course of antibiotic therapy. She had a Citrobacter urinary tract infection (3) Dementia with behavioral disturbance Is this a current diagnosis for this admission?: Yes Plan: Psychiatry recommended avoiding Haldol as well as Ativan. She seems less lethargic with current regimen. (4) Hyperlipidemia Is this a current diagnosis for this admission?: Yes (5) Hypertension Is this a current diagnosis for this admission?: Yes (6) COPD (chronic obstructive pulmonary disease) Is this a current diagnosis for this admission?: Yes (7) Hypercalcemia Is this a current diagnosis for this admission?: Yes Plan: Secondary to dehydration. Resolved. (8) Hypokalemia Is this a current diagnosis for this admission?: Yes We will replete potassium. Follow-up level in a.m. (9) Debility and weakness Is this a current diagnosis for this admission?: Yes Patient may benefit from rehab. Will have PT reevaluate as patient mental status is better off sedating medicines and agitation better controlled. (10) Full code status Is this a current diagnosis for this admission?: Yes
[2018-04-13] MEDS ORDERED: POTASSIUM CHLORIDE 20 MEQ/15 ML UDCUP PO ONE ×2 (19:15→23:30)
[2018-04-14] MEDS: LANSOPRAZOLE 15 MG TAB.RAP.DR PO SCH (05:43)
[2018-04-14] MEDS: DIVALPROEX SODIUM 250 MG TABLET.DR PO SCH ×3 (05:43→18:43)
[2018-04-14] MEDS: BUSPIRONE HCL 10 MG TABLET PO SCH ×3 (05:43→18:42)
[2018-04-14] MEDS: RISPERIDONE 0.25 MG TABLET PO SCH ×3 (05:43→18:44)
[2018-04-14 09:15] LABS: ABSOLUTE EOSINOPHILS # (AUTO) 0.2 10^3/uL (0.0-0.6); ABSOLUTE LYMPHOCYTES (AUTO) 1.5 10^3/uL (0.5-4.7); ABSOLUTE MONOCYTES (AUTO) 0.8 10^3/uL (0.1-1.4); ABSOLUTE NEUT (AUTO) 5.2 10^3/uL (1.7-8.2); BASOPHILS % (AUTO) 0.6 % (0-2); EOSINOPHILS % (AUTO) 2.5 % (0-6); HEMATOCRIT 41.5 % (36.0-47.0); HEMOGLOBIN 14.2 g/dL (12.0-15.5); LYMPHOCYTES % (AUTO) 19.7 % (13-45); MEAN CORPUSCULAR HEMOGLOBIN 31.3 pg (27.0-33.4); MEAN CORPUSCULAR HGB CONC 34.1 g/dL (32.0-36.0); MEAN CORPUSCULAR VOLUME 92 fl (80-97); MONOCYTES % (AUTO) 10.2 % (3-13); PLATELET COUNT 182 10^3/uL (150-450); RED BLOOD COUNT 4.52 10^6/uL (3.72-5.28); RED CELL DISTRIBUTION WIDTH 13.7 % (11.5-14.0); TOTAL CELLS COUNTED % (AUTO) 100 %; WHITE BLOOD COUNT 7.7 10^3/uL (4.0-10.5)
[2018-04-14 09:35] LABS: ALANINE AMINOTRANSFERASE 31 U/L (9-52); ALBUMIN 3.4 g/dL (3.5-5.0); ALKALINE PHOSPHATASE 62 U/L (38-126); ANION GAP 11 (5-19); ASPARTATE AMINO TRANSFERASE 34 U/L (14-36); BILIRUBIN,DIRECT 0.2 mg/dL (0.0-0.4); BILIRUBIN,TOTAL 0.5 mg/dL (0.2-1.3); BLOOD UREA NITROGEN 34 mg/dL (7-20); CALCIUM 9.7 mg/dL (8.4-10.2); CARBON DIOXIDE 38 mmol/L (22-30); CHLORIDE 91 mmol/L (98-107); GLUCOSE 89 mg/dL (75-110); POTASSIUM 3.4 mmol/L (3.6-5.0); SODIUM 139.7 mmol/L (137-145); TOTAL PROTEIN 6.2 g/dL (6.3-8.2)
[2018-04-14] MEDS: HYDROCHLOROTHIAZIDE 25 MG TABLET PO SCH (11:28)
[2018-04-14] MEDS: ASPIRIN 81 MG TABLET, ENT COATED PO SCH (11:28)
[2018-04-14] MEDS: LISINOPRIL 10 MG TABLET PO SCH (11:28)
[2018-04-14] MEDS: BUDESONIDE/FORMOTEROL 160-4.5 MCG 60 PUFF/6 GM MDI IH SCH ×2 (11:30→21:00)
[2018-04-14] MEDS: ENOXAPARIN SODIUM INJ 30 MG/0.3 ML DISP.SYRIN SUBCUT SCH (11:31)
[2018-04-14] MEDS: CHOLECALCIFEROL (D3) 1,000 UNIT TABLET PO SCH (11:46)
--- NOTE | 2018-04-14 18:52 | PDOC PROGRESS REPORT ---
Subjective Progress Note for:: 04/14/18 Subjective:: 72-year-old female with advanced dementia, was being cared for at home by her , admitted with agitations and found to have urinary tract infection. She is being treated for this. Patient awake, more interactive. Answering simple questions and appears calm. She knows her . She remains unsteady on her feet. Reason For Visit: AGITATION/DELIRIUM/UTI Physical Exam Vital Signs: Temp Pulse Resp BP Pulse Ox 97.4 F 103 H 18 131/62 H 100 04/14/18 15:26 04/14/18 15:26 04/14/18 15:26 04/14/18 15:26 04/14/18 07:51 Intake & Output 04/13/18 04/14/18 04/15/18 06:59 06:59 06:59 Intake Total 600 400 Output Total 1050 875 Balance -450 -475 Weight 62 kg 59.6 kg General appearance: PRESENT: No acute distress Respiratory exam: PRESENT: clear to auscultation iram. ABSENT: rales, rhonchi, wheezes Cardiovascular exam: PRESENT: RRR. ABSENT: diastolic murmur, rubs, systolic murmur GI/Abdominal exam: PRESENT: normal bowel sounds, soft. ABSENT: distended, guarding, mass, organolmegaly, rebound, tenderness Neurological exam: PRESENT: alert, awake, oriented to person, knows her , follows simple commands. Has generalized weakness and unsteady on her feet. Psychiatric exam: PRESENT: other - She remains calmer today and not appearing sleepy with adjustment of her medications. Skin exam: PRESENT: dry, intact, warm. ABSENT: cyanosis, rash Results Laboratory Results: 04/14/18 08:51 04/14/18 08:51 04/14/18 04/14/18 08:51 08:51 WBC 7.7 RBC 4.52 Hgb 14.2 Hct 41.5 MCV 92 MCH 31.3 MCHC 34.1 RDW 13.7 Plt Count 182 Seg Neutrophils % 67.0 Lymphocytes % 19.7 Monocytes % 10.2 Eosinophils % 2.5 Basophils % 0.6 Absolute Neutrophils 5.2 Absolute Lymphocytes 1.5 Absolute Monocytes 0.8 Absolute Eosinophils 0.2 Absolute Basophils 0.0 Sodium 139.7 Potassium 3.4 L Chloride 91 L Carbon Dioxide 38 H Anion Gap 11 BUN 34 H Creatinine 0.82 Est GFR ( Amer) > 60 Est GFR (Non-Af Amer) > 60 Glucose 89 Calcium 9.7 Magnesium 2.1 Total Bilirubin 0.5 AST 34 ALT 31 Alkaline Phosphatase 62 Total Protein 6.2 L Albumin 3.4 L 04/11/18 04:50 Catheterized Urine Urine Culture - Final Enterococcus Faecalis(Group D) Enterococcus Avium Impressions: Chest CT 04/04/18 00:00 IMPRESSION: Persistent partial atelectasis in the right upper lobe. Chest X-Ray 04/04/18 16:40 IMPRESSION: NO ACUTE RADIOGRAPHIC FINDING IN THE CHEST. Head CT 04/09/18 00:00 IMPRESSION: No acute intracranial hemorrhage or acute territorial infarct. Chronic changes of atrophy and microvascular ischemia. EVIDENCE OF ACUTE STROKE: NO. Assessment & Plan - Plan Summary Plan Summary: (1) Acute encephalopathy Is this a current diagnosis for this admission?: Yes Plan: The patient's acute encephalopathy was due to a urinary tract infection. She also has advanced dementia at baseline with behavioral disturbances. She is more able to follow some commands today. I believe she is about back to her cognitive baseline per the family. (2) Urinary tract infection Is this a current diagnosis for this admission?: Yes Plan: She has completed antibiotic therapy. She had a Citrobacter urinary tract infection (3) Dementia with behavioral disturbance Is this a current diagnosis for this admission?: Yes Plan: Psychiatry recommended avoiding Haldol as well as Ativan. She seems less lethargic with current regimen risperidone and Depakote. (4) Hyperlipidemia Is this a current diagnosis for this admission?: Yes (5) Hypertension Is this a current diagnosis for this admission?: Yes (6) COPD (chronic obstructive pulmonary disease) Is this a current diagnosis for this admission?: Yes (7) Hypercalcemia Is this a current diagnosis for this admission?: Yes Plan: Secondary to dehydration. Resolved. (8) Hypokalemia Is this a current diagnosis for this admission?: Yes We will replete potassium. Follow-up level in a.m. (9) Debility and weakness Is this a current diagnosis for this admission?: Yes Patient may benefit from rehab. PT reevaluate as patient mental status is better since stopping sedating medicines and agitation is better controlled. -I had a peer to peer conference with her insurance MD yesterday, 04/13/18. The to reevaluate patient for possible correction facility placement after repeat PT evaluation. (10) Full code status Is this a current diagnosis for this admission?: Yes
[2018-04-14] MEDS: POTASSIUM CHLORIDE 20 MEQ/15 ML UDCUP PO SCH (20:58)
[2018-04-14] MEDS: DONEPEZIL HCL 5 MG TABLET PO SCH (21:00)
[2018-04-14] MEDS: ATORVASTATIN CALCIUM 10 MG TABLET PO SCH (21:00)
[2018-04-15 00:18] LABS: ABSOLUTE BASOPHILS # (AUTO) 0.1 10^3/uL (0.0-0.2); ABSOLUTE EOSINOPHILS # (AUTO) 0.1 10^3/uL (0.0-0.6); ABSOLUTE LYMPHOCYTES (AUTO) 1.4 10^3/uL (0.5-4.7); ABSOLUTE MONOCYTES (AUTO) 0.9 10^3/uL (0.1-1.4); ABSOLUTE NEUT (AUTO) 5.7 10^3/uL (1.7-8.2); BASOPHILS % (AUTO) 1.2 % (0-2); EOSINOPHILS % (AUTO) 1.7 % (0-6); HEMATOCRIT 38.5 % (36.0-47.0); HEMOGLOBIN 13.1 g/dL (12.0-15.5); LYMPHOCYTES % (AUTO) 16.7 % (13-45); MEAN CORPUSCULAR HEMOGLOBIN 31.1 pg (27.0-33.4); MEAN CORPUSCULAR HGB CONC 34.1 g/dL (32.0-36.0); MEAN CORPUSCULAR VOLUME 91 fl (80-97); MONOCYTES % (AUTO) 10.5 % (3-13); PLATELET COUNT 166 10^3/uL (150-450); RED BLOOD COUNT 4.22 10^6/uL (3.72-5.28); RED CELL DISTRIBUTION WIDTH 13.8 % (11.5-14.0); SEGMENTED NEUTROPHILS % (AUTO) 69.9 % (42-78); TOTAL CELLS COUNTED % (AUTO) 100 %; WHITE BLOOD COUNT 8.1 10^3/uL (4.0-10.5)
[2018-04-15 00:27] LABS: HEMATOCRIT 38.5 % (36.0-47.0); HEMOGLOBIN 13.1 g/dL (12.0-15.5); MEAN CORPUSCULAR HEMOGLOBIN 31.1 pg (27.0-33.4); MEAN CORPUSCULAR HGB CONC 34.1 g/dL (32.0-36.0); MEAN CORPUSCULAR VOLUME 91 fl (80-97); RED BLOOD COUNT 4.22 10^6/uL (3.72-5.28); WHITE BLOOD COUNT 8.1 10^3/uL (4.0-10.5)
[2018-04-15 00:28] LABS: ABSOLUTE BASOPHILS # (AUTO) 0.1 10^3/uL (0.0-0.2); ABSOLUTE EOSINOPHILS # (AUTO) 0.1 10^3/uL (0.0-0.6); ABSOLUTE LYMPHOCYTES (AUTO) 1.4 10^3/uL (0.5-4.7); ABSOLUTE MONOCYTES (AUTO) 0.9 10^3/uL (0.1-1.4); ABSOLUTE NEUT (AUTO) 5.7 10^3/uL (1.7-8.2); BASOPHILS % (AUTO) 1.2 % (0-2); EOSINOPHILS % (AUTO) 1.7 % (0-6); LYMPHOCYTES % (AUTO) 16.7 % (13-45); MONOCYTES % (AUTO) 10.5 % (3-13); PLATELET COUNT 166 10^3/uL (150-450); RED CELL DISTRIBUTION WIDTH 13.8 % (11.5-14.0); SEGMENTED NEUTROPHILS % (AUTO) 69.9 % (42-78); TOTAL CELLS COUNTED % (AUTO) 100 %
[2018-04-15 01:35] LABS: ALANINE AMINOTRANSFERASE 25 U/L (9-52); ALBUMIN 3.3 g/dL (3.5-5.0); ALKALINE PHOSPHATASE 63 U/L (38-126); ANION GAP 10 (5-19); ASPARTATE AMINO TRANSFERASE 31 U/L (14-36); BILIRUBIN,DIRECT 0.3 mg/dL (0.0-0.4); BILIRUBIN,TOTAL 0.4 mg/dL (0.2-1.3); BLOOD UREA NITROGEN 46 mg/dL (7-20); CALCIUM 9.4 mg/dL (8.4-10.2); CARBON DIOXIDE 36 mmol/L (22-30); CHLORIDE 92 mmol/L (98-107); GLUCOSE 101 mg/dL (75-110); POTASSIUM 3.6 mmol/L (3.6-5.0); SODIUM 137.5 mmol/L (137-145)
[2018-04-15] MEDS: LANSOPRAZOLE 15 MG TAB.RAP.DR PO SCH (06:14)
[2018-04-15 08:11] LABS: ABSOLUTE BASOPHILS # (AUTO) 0.1 10^3/uL (0.0-0.2); ABSOLUTE EOSINOPHILS # (AUTO) 0.2 10^3/uL (0.0-0.6); ABSOLUTE LYMPHOCYTES (AUTO) 1.2 10^3/uL (0.5-4.7); ABSOLUTE MONOCYTES (AUTO) 0.8 10^3/uL (0.1-1.4); ABSOLUTE NEUT (AUTO) 5.2 10^3/uL (1.7-8.2); BASOPHILS % (AUTO) 0.7 % (0-2); EOSINOPHILS % (AUTO) 2.1 % (0-6); HEMATOCRIT 38.1 % (36.0-47.0); LYMPHOCYTES % (AUTO) 15.9 % (13-45); MEAN CORPUSCULAR HEMOGLOBIN 30.8 pg (27.0-33.4); MEAN CORPUSCULAR HGB CONC 34.1 g/dL (32.0-36.0); MEAN CORPUSCULAR VOLUME 90 fl (80-97); MONOCYTES % (AUTO) 10.8 % (3-13); PLATELET COUNT 164 10^3/uL (150-450); RED BLOOD COUNT 4.22 10^6/uL (3.72-5.28); RED CELL DISTRIBUTION WIDTH 13.7 % (11.5-14.0); SEGMENTED NEUTROPHILS % (AUTO) 70.5 % (42-78); TOTAL CELLS COUNTED % (AUTO) 100 %; WHITE BLOOD COUNT 7.4 10^3/uL (4.0-10.5)
[2018-04-15 08:29] LABS: ANION GAP 8 (5-19); BLOOD UREA NITROGEN 36 mg/dL (7-20); CALCIUM 9.5 mg/dL (8.4-10.2); CARBON DIOXIDE 39 mmol/L (22-30); CHLORIDE 92 mmol/L (98-107); GLUCOSE 84 mg/dL (75-110); POTASSIUM 3.1 mmol/L (3.6-5.0); SODIUM 138.7 mmol/L (137-145)
[2018-04-15] MEDS: LISINOPRIL 10 MG TABLET PO SCH (10:08)
[2018-04-15] MEDS: RISPERIDONE 0.25 MG TABLET PO SCH ×2 (10:08→17:12)
[2018-04-15] MEDS: BUDESONIDE/FORMOTEROL 160-4.5 MCG 60 PUFF/6 GM MDI IH SCH ×2 (10:09→21:01)
[2018-04-15] MEDS: POTASSIUM CHLORIDE 20 MEQ/15 ML UDCUP PO SCH (10:11)
[2018-04-15] MEDS: ENOXAPARIN SODIUM INJ 30 MG/0.3 ML DISP.SYRIN SUBCUT SCH (10:12)
[2018-04-15] MEDS: CHOLECALCIFEROL (D3) 1,000 UNIT TABLET PO SCH (10:12)
[2018-04-15] MEDS: ASPIRIN 81 MG TABLET, ENT COATED PO SCH (10:12)
[2018-04-15] MEDS: DIVALPROEX SODIUM 250 MG TABLET.DR PO SCH ×2 (10:12→17:12)
[2018-04-15] MEDS: HYDROCHLOROTHIAZIDE 25 MG TABLET PO SCH (10:12)
[2018-04-15] MEDS: BUSPIRONE HCL 10 MG TABLET PO SCH ×2 (10:13→17:12)
--- NOTE | 2018-04-15 18:25 | PDOC PROGRESS REPORT ---
Subjective Progress Note for:: 04/15/18 Subjective:: 72-year-old female with advanced dementia, was being cared for at home by her , admitted with agitations and found to have urinary tract infection. She is being treated for this. Patient confused Reason For Visit: AGITATION/DELIRIUM/UTI Physical Exam Vital Signs: Temp Pulse Resp BP Pulse Ox 98.7 F 107 H 20 142/57 H 96 04/15/18 07:59 04/15/18 15:55 04/15/18 07:59 04/15/18 15:55 04/15/18 00:00 Intake & Output 04/14/18 04/15/18 04/16/18 06:59 06:59 06:59 Intake Total 400 400 320 Output Total 875 1125 500 Balance -475 -725 -180 Weight 59.6 kg General appearance: PRESENT: no acute distress, well-nourished Head exam: PRESENT: atraumatic Respiratory exam: PRESENT: clear to auscultation iram. ABSENT: rales, rhonchi, wheezes GI/Abdominal exam: PRESENT: normal bowel sounds, soft. ABSENT: distended, guarding, mass, organolmegaly, rebound, tenderness Rectal exam: PRESENT: deferred Neurological exam: PRESENT: alert, altered Results Laboratory Results: 04/15/18 07:55 04/15/18 07:55 04/14/18 04/15/18 04/15/18 23:54 00:03 00:03 WBC 8.1 8.1 RBC 4.22 4.22 Hgb 13.1 13.1 Hct 38.5 38.5 MCV 91 91 MCH 31.1 31.1 MCHC 34.1 34.1 RDW 13.8 13.8 Plt Count 166 166 Seg Neutrophils % 69.9 69.9 Lymphocytes % 16.7 16.7 Monocytes % 10.5 10.5 Eosinophils % 1.7 1.7 Basophils % 1.2 1.2 Absolute Neutrophils 5.7 5.7 Absolute Lymphocytes 1.4 1.4 Absolute Monocytes 0.9 0.9 Absolute Eosinophils 0.1 0.1 Absolute Basophils 0.1 0.1 Sodium 137.5 Potassium 3.6 Chloride 92 L Carbon Dioxide 36 H Anion Gap 10 BUN 46 H Creatinine 0.93 Est GFR ( Amer) > 60 Est GFR (Non-Af Amer) > 60 Glucose 101 Calcium 9.4 Total Bilirubin 0.4 AST 31 ALT 25 Alkaline Phosphatase 63 Total Protein 6.0 L Albumin 3.3 L 04/15/18 04/15/18 07:55 07:55 WBC 7.4 RBC 4.22 Hgb 13.0 Hct 38.1 MCV 90 MCH 30.8 MCHC 34.1 RDW 13.7 Plt Count 164 Seg Neutrophils % 70.5 Lymphocytes % 15.9 Monocytes % 10.8 Eosinophils % 2.1 Basophils % 0.7 Absolute Neutrophils 5.2 Absolute Lymphocytes 1.2 Absolute Monocytes 0.8 Absolute Eosinophils 0.2 Absolute Basophils 0.1 Sodium 138.7 Potassium 3.1 L Chloride 92 L Carbon Dioxide 39 H Anion Gap 8 BUN 36 H Creatinine 0.86 Est GFR ( Amer) > 60 Est GFR (Non-Af Amer) > 60 Glucose 84 Calcium 9.5 Total Bilirubin AST ALT Alkaline Phosphatase Total Protein Albumin 04/11/18 04:50 Catheterized Urine Urine Culture - Final Enterococcus Faecalis(Group D) Enterococcus Avium Impressions: Chest CT 04/04/18 00:00 IMPRESSION: Persistent partial atelectasis in the right upper lobe. Chest X-Ray 04/04/18 16:40 IMPRESSION: NO ACUTE RADIOGRAPHIC FINDING IN THE CHEST. Head CT 04/09/18 00:00 IMPRESSION: No acute intracranial hemorrhage or acute territorial infarct. Chronic changes of atrophy and microvascular ischemia. EVIDENCE OF ACUTE STROKE: NO. Assessment & Plan - Time Time Spent with patient: 15-24 minutes Medications reviewed and adjusted accordingly: Yes Anticipated discharge: Acute Rehab Within: within 48 hours - Inpatient Certification Based on my medical assessment, after consideration of the patient's comorbidities, presenting symptoms, or acuity I expect that the services needed warrant INPATIENT care.: Yes Medical Necessity: Need Close Monitoring Due to Risk of Patient Decompensation, Need for Nebulizer Therapy and Monitoring of Response
[2018-04-15] MEDS: DONEPEZIL HCL 5 MG TABLET PO SCH (21:00)
[2018-04-15] MEDS: ATORVASTATIN CALCIUM 10 MG TABLET PO SCH (21:00)
[2018-04-16] MEDS: LANSOPRAZOLE 15 MG TAB.RAP.DR PO SCH (06:38)
[2018-04-16] MEDS: DIVALPROEX SODIUM 250 MG TABLET.DR PO SCH ×2 (06:44→17:09)
[2018-04-16] MEDS: BUSPIRONE HCL 10 MG TABLET PO SCH ×2 (06:44→17:09)
[2018-04-16] MEDS: RISPERIDONE 0.25 MG TABLET PO SCH ×2 (06:44→17:09)
[2018-04-16] MEDS: LISINOPRIL 10 MG TABLET PO SCH (10:41)
[2018-04-16] MEDS: BUDESONIDE/FORMOTEROL 160-4.5 MCG 60 PUFF/6 GM MDI IH SCH ×2 (10:41→21:05)
[2018-04-16] MEDS: HYDROCHLOROTHIAZIDE 25 MG TABLET PO SCH (10:41)
[2018-04-16] MEDS: CHOLECALCIFEROL (D3) 1,000 UNIT TABLET PO SCH (10:41)
[2018-04-16] MEDS: POTASSIUM CHLORIDE 20 MEQ/15 ML UDCUP PO SCH (10:41)
[2018-04-16] MEDS: ASPIRIN 81 MG TABLET, ENT COATED PO SCH (10:41)
[2018-04-16] MEDS: ENOXAPARIN SODIUM INJ 30 MG/0.3 ML DISP.SYRIN SUBCUT SCH (10:42)
[2018-04-16] MEDS ORDERED: POTASSIUM CHLORIDE 10 MEQ CAPSULE.ER PO ONE (12:00)
--- NOTE | 2018-04-16 13:57 | PDOC PROGRESS REPORT ---
Subjective Progress Note for:: 04/16/18 Subjective:: 72-year-old female with advanced dementia, was being cared for at home by her , admitted with agitations and found to have urinary tract infection. She is being treated for this. Patient confused but seems calmer today Reason For Visit: AGITATION/DELIRIUM/UTI Physical Exam Vital Signs: Temp Pulse Resp BP Pulse Ox 98.7 F 99 16 134/53 H 96 04/15/18 07:59 04/16/18 08:00 04/16/18 08:00 04/16/18 08:00 04/16/18 00:00 Intake & Output 04/15/18 04/16/18 04/17/18 06:59 06:59 06:59 Intake Total 400 520 Output Total 1125 900 Balance -725 -380 Weight 57.8 kg General appearance: PRESENT: no acute distress Head exam: PRESENT: atraumatic, normocephalic Eye exam: PRESENT: conjunctiva pink, PERRLA. ABSENT: scleral icterus Mouth exam: PRESENT: moist Neck exam: ABSENT: carotid bruit, JVD, lymphadenopathy, thyromegaly Respiratory exam: PRESENT: clear to auscultation iram. ABSENT: rales, rhonchi, wheezes Cardiovascular exam: PRESENT: RRR. ABSENT: diastolic murmur, rubs, systolic murmur Pulses: PRESENT: normal dorsalis pedis pul Vascular exam: PRESENT: normal capillary refill GI/Abdominal exam: PRESENT: normal bowel sounds, soft. ABSENT: distended, guarding, mass, organolmegaly, rebound, tenderness Rectal exam: PRESENT: deferred Extremities exam: PRESENT: full ROM. ABSENT: calf tenderness, clubbing, pedal edema Neurological exam: PRESENT: alert, awake. ABSENT: motor sensory deficit Psychiatric exam: PRESENT: other - unable to assess Skin exam: PRESENT: dry, intact, warm. ABSENT: cyanosis, rash Results Laboratory Results: 04/15/18 07:55 04/15/18 07:55 04/13/18 14:55 Taveras Catheter Urine Culture - Final Enterococcus Faecalis(Group D) Impressions: Chest CT 04/04/18 00:00 IMPRESSION: Persistent partial atelectasis in the right upper lobe. Chest X-Ray 04/04/18 16:40 IMPRESSION: NO ACUTE RADIOGRAPHIC FINDING IN THE CHEST. Head CT 04/09/18 00:00 IMPRESSION: No acute intracranial hemorrhage or acute territorial infarct. Chronic changes of atrophy and microvascular ischemia. EVIDENCE OF ACUTE STROKE: NO. Assessment & Plan - Time Time Spent with patient: 15-24 minutes Medications reviewed and adjusted accordingly: Yes Anticipated discharge: Acute Rehab Within: when bed available - Inpatient Certification Medical Necessity: Significant Comorbidiites Make Outpatient Treatment Too Risky , Risk of Complication if Not Cared For in Hospital - Plan Summary Plan Summary: Acute encephalopathy likely secondary to urinary tract infection superimposed on underlying dementia with behavioral disturbances. Plan is to discharge to longterm once bed available. 2. Urinary tract infection secondary to Citrobacter. She has completed antibiotics 3. Dementia with behavioral disturbances. She is currently on Depakote and Risperdal 4. Hyperlipidemia chronic 5. Hypertension stable 6. Stable COPD 7. Debility and weakness plan is for rehab 8. Electrolyte abnormalities corrected 9Discussed with today and his questions were answered satisfactorily
[2018-04-16] MEDS: LEVOFLOXACIN 500 MG TABLET PO SCH (15:41)
[2018-04-16] MEDS: DONEPEZIL HCL 5 MG TABLET PO SCH (21:01)
[2018-04-16] MEDS: ATORVASTATIN CALCIUM 10 MG TABLET PO SCH (21:02)
[2018-04-17] MEDS: LANSOPRAZOLE 15 MG TAB.RAP.DR PO SCH (05:08)
[2018-04-17] MEDS: BUSPIRONE HCL 10 MG TABLET PO SCH ×2 (05:09→17:17)
[2018-04-17] MEDS: RISPERIDONE 0.25 MG TABLET PO SCH ×2 (05:09→17:17)
[2018-04-17] MEDS: DIVALPROEX SODIUM 250 MG TABLET.DR PO SCH ×2 (05:09→17:17)
[2018-04-17 08:24] LABS: ABSOLUTE BASOPHILS # (AUTO) 0.1 10^3/uL (0.0-0.2); ABSOLUTE EOSINOPHILS # (AUTO) 0.2 10^3/uL (0.0-0.6); ABSOLUTE LYMPHOCYTES (AUTO) 1.9 10^3/uL (0.5-4.7); ABSOLUTE NEUT (AUTO) 5.8 10^3/uL (1.7-8.2); BASOPHILS % (AUTO) 1.1 % (0-2); EOSINOPHILS % (AUTO) 2.2 % (0-6); HEMATOCRIT 35.8 % (36.0-47.0); HEMOGLOBIN 12.3 g/dL (12.0-15.5); MEAN CORPUSCULAR HEMOGLOBIN 31.1 pg (27.0-33.4); MEAN CORPUSCULAR HGB CONC 34.2 g/dL (32.0-36.0); MEAN CORPUSCULAR VOLUME 91 fl (80-97); MONOCYTES % (AUTO) 10.9 % (3-13); PLATELET COUNT 157 10^3/uL (150-450); RED BLOOD COUNT 3.94 10^6/uL (3.72-5.28); RED CELL DISTRIBUTION WIDTH 13.6 % (11.5-14.0); SEGMENTED NEUTROPHILS % (AUTO) 64.8 % (42-78); TOTAL CELLS COUNTED % (AUTO) 100 %; WHITE BLOOD COUNT 8.9 10^3/uL (4.0-10.5)
[2018-04-17 08:38] LABS: ALANINE AMINOTRANSFERASE 29 U/L (9-52); ALBUMIN 3.1 g/dL (3.5-5.0); ALKALINE PHOSPHATASE 71 U/L (38-126); ANION GAP 12 (5-19); ASPARTATE AMINO TRANSFERASE 19 U/L (14-36); BILIRUBIN,DIRECT 0.3 mg/dL (0.0-0.4); BILIRUBIN,TOTAL 0.3 mg/dL (0.2-1.3); BLOOD UREA NITROGEN 31 mg/dL (7-20); CALCIUM 9.3 mg/dL (8.4-10.2); CARBON DIOXIDE 32 mmol/L (22-30); CHLORIDE 94 mmol/L (98-107); GLUCOSE 90 mg/dL (75-110); POTASSIUM 3.7 mmol/L (3.6-5.0); SODIUM 138.3 mmol/L (137-145); TOTAL PROTEIN 5.3 g/dL (6.3-8.2)
[2018-04-17] MEDS: ENOXAPARIN SODIUM INJ 30 MG/0.3 ML DISP.SYRIN SUBCUT SCH (10:25)
[2018-04-17] MEDS: POTASSIUM CHLORIDE 20 MEQ/15 ML UDCUP PO SCH (10:25)
[2018-04-17] MEDS: HYDROCHLOROTHIAZIDE 25 MG TABLET PO SCH (10:36)
[2018-04-17] MEDS: LISINOPRIL 10 MG TABLET PO SCH (10:37)
[2018-04-17] MEDS: ASPIRIN 81 MG TABLET, ENT COATED PO SCH (10:37)
[2018-04-17] MEDS: POTASSIUM CHLORIDE 10 MEQ CAPSULE.ER PO SCH (10:37)
[2018-04-17] MEDS: CHOLECALCIFEROL (D3) 1,000 UNIT TABLET PO SCH (10:37)
[2018-04-17] MEDS: BUDESONIDE/FORMOTEROL 160-4.5 MCG 60 PUFF/6 GM MDI IH SCH ×2 (10:37→23:39)
[2018-04-17] MEDS: LEVOFLOXACIN 500 MG TABLET PO SCH (17:17)
--- NOTE | 2018-04-17 17:33 | PDOC PROGRESS REPORT ---
Subjective Progress Note for:: 04/17/18 Subjective:: 72-year-old female with advanced dementia, was being cared for at home by her , admitted with agitations and found to have urinary tract infection. She is being treated for this. Still awaiting bed transfer and subsequent transfer Reason For Visit: AGITATION/DELIRIUM/UTI Physical Exam Vital Signs: Temp Pulse Resp BP Pulse Ox 97.8 F 98 16 125/78 96 04/16/18 19:44 04/17/18 12:00 04/17/18 12:00 04/17/18 12:00 04/16/18 19:44 Intake & Output 04/16/18 04/17/18 04/18/18 06:59 06:59 06:59 Intake Total 520 200 Output Total 900 350 Balance -380 -150 Weight 57.8 kg 58.4 kg General appearance: PRESENT: no acute distress, thin Head exam: PRESENT: atraumatic Teeth exam: PRESENT: poor dentation Neck exam: ABSENT: carotid bruit, JVD, lymphadenopathy, thyromegaly Respiratory exam: PRESENT: clear to auscultation iram. ABSENT: rales, rhonchi, wheezes Cardiovascular exam: PRESENT: RRR. ABSENT: diastolic murmur, rubs, systolic murmur Rectal exam: PRESENT: deferred Neurological exam: PRESENT: alert, awake. ABSENT: oriented to person, oriented to place, oriented to time, oriented to situation Results Laboratory Results: 04/17/18 08:03 04/17/18 08:03 04/17/18 04/17/18 08:03 08:03 WBC 8.9 RBC 3.94 Hgb 12.3 Hct 35.8 L MCV 91 MCH 31.1 MCHC 34.2 RDW 13.6 Plt Count 157 Seg Neutrophils % 64.8 Lymphocytes % 21.0 Monocytes % 10.9 Eosinophils % 2.2 Basophils % 1.1 Absolute Neutrophils 5.8 Absolute Lymphocytes 1.9 Absolute Monocytes 1.0 Absolute Eosinophils 0.2 Absolute Basophils 0.1 Sodium 138.3 Potassium 3.7 Chloride 94 L Carbon Dioxide 32 H Anion Gap 12 BUN 31 H Creatinine 0.91 Est GFR ( Amer) > 60 Est GFR (Non-Af Amer) > 60 Glucose 90 Calcium 9.3 Total Bilirubin 0.3 AST 19 ALT 29 Alkaline Phosphatase 71 Total Protein 5.3 L Albumin 3.1 L Impressions: Chest CT 04/04/18 00:00 IMPRESSION: Persistent partial atelectasis in the right upper lobe. Chest X-Ray 04/04/18 16:40 IMPRESSION: NO ACUTE RADIOGRAPHIC FINDING IN THE CHEST. Head CT 04/09/18 00:00 IMPRESSION: No acute intracranial hemorrhage or acute territorial infarct. Chronic changes of atrophy and microvascular ischemia. EVIDENCE OF ACUTE STROKE: NO. Assessment & Plan - Time Time Spent with patient: 15-24 minutes - Including discussion with spouse Medications reviewed and adjusted accordingly: Yes Anticipated discharge: SNF Within: when bed available - Inpatient Certification Based on my medical assessment, after consideration of the patient's comorbidities, presenting symptoms, or acuity I expect that the services needed warrant INPATIENT care.: Yes Medical Necessity: Significant Comorbidiites Make Outpatient Treatment Too Risky , Need Close Monitoring Due to Risk of Patient Decompensation - Plan Summary Plan Summary: Acute encephalopathy likely secondary to urinary tract infection superimposed on underlying dementia with behavioral disturbances. [facility]. 2. Urinary tract infection secondary to Citrobacter. She has completed antibiotics 3. Dementia with behavioral disturbances. She is currently on Depakote and Risperdal and this seems to be controlling her symptoms agitation 4. Hyperlipidemia chronic 5. Hypertension stable 6. Stable COPD 7. Debility and weakness plan is for rehab 8. Electrolyte abnormalities corrected 9. Discussed with again today and his questions were answered satisfactorily. He is aware of the reason for patient still been in hospital
[2018-04-17] MEDS: DONEPEZIL HCL 5 MG TABLET PO SCH (23:38)
[2018-04-17] MEDS: ATORVASTATIN CALCIUM 10 MG TABLET PO SCH (23:39)
[2018-04-18] MEDS: RISPERIDONE 0.25 MG TABLET PO SCH (06:19)
[2018-04-18] MEDS: DIVALPROEX SODIUM 250 MG TABLET.DR PO SCH (06:19)
[2018-04-18] MEDS: BUSPIRONE HCL 10 MG TABLET PO SCH (06:20)
[2018-04-18] MEDS: LANSOPRAZOLE 15 MG TAB.RAP.DR PO SCH (06:20)
[2018-04-18 08:14] LABS: ABSOLUTE EOSINOPHILS # (AUTO) 0.2 10^3/uL (0.0-0.6); ABSOLUTE LYMPHOCYTES (AUTO) 1.9 10^3/uL (0.5-4.7); ABSOLUTE MONOCYTES (AUTO) 0.8 10^3/uL (0.1-1.4); ABSOLUTE NEUT (AUTO) 4.9 10^3/uL (1.7-8.2); BASOPHILS % (AUTO) 0.5 % (0-2); EOSINOPHILS % (AUTO) 2.7 % (0-6); HEMATOCRIT 35.1 % (36.0-47.0); HEMOGLOBIN 11.9 g/dL (12.0-15.5); LYMPHOCYTES % (AUTO) 24.1 % (13-45); MEAN CORPUSCULAR HGB CONC 33.9 g/dL (32.0-36.0); MEAN CORPUSCULAR VOLUME 91 fl (80-97); MONOCYTES % (AUTO) 10.3 % (3-13); PLATELET COUNT 159 10^3/uL (150-450); RED BLOOD COUNT 3.84 10^6/uL (3.72-5.28); RED CELL DISTRIBUTION WIDTH 13.6 % (11.5-14.0); SEGMENTED NEUTROPHILS % (AUTO) 62.4 % (42-78); TOTAL CELLS COUNTED % (AUTO) 100 %; WHITE BLOOD COUNT 7.9 10^3/uL (4.0-10.5)
[2018-04-18 08:38] LABS: ALANINE AMINOTRANSFERASE 26 U/L (9-52); ALBUMIN 2.8 g/dL (3.5-5.0); ALKALINE PHOSPHATASE 57 U/L (38-126); ANION GAP 10 (5-19); ASPARTATE AMINO TRANSFERASE 19 U/L (14-36); BILIRUBIN,DIRECT 0.2 mg/dL (0.0-0.4); BILIRUBIN,TOTAL 0.4 mg/dL (0.2-1.3); BLOOD UREA NITROGEN 29 mg/dL (7-20); CALCIUM 9.5 mg/dL (8.4-10.2); CARBON DIOXIDE 34 mmol/L (22-30); CHLORIDE 96 mmol/L (98-107); GLUCOSE 81 mg/dL (75-110); POTASSIUM 4.2 mmol/L (3.6-5.0); SODIUM 139.8 mmol/L (137-145); TOTAL PROTEIN 5.3 g/dL (6.3-8.2)
[2018-04-18] MEDS ORDERED: CLONIDINE 0.1 MG/24 HR PATCH.TDWK TD SCH (10:00)
[2018-04-18] MEDS: ASPIRIN 81 MG TABLET, ENT COATED PO SCH (10:21)
[2018-04-18] MEDS: POTASSIUM CHLORIDE 10 MEQ CAPSULE.ER PO SCH (10:21)
[2018-04-18] MEDS: LISINOPRIL 10 MG TABLET PO SCH (10:21)
[2018-04-18] MEDS: CHOLECALCIFEROL (D3) 1,000 UNIT TABLET PO SCH (10:21)
[2018-04-18] MEDS: HYDROCHLOROTHIAZIDE 25 MG TABLET PO SCH (10:22)
[2018-04-18] MEDS: BUDESONIDE/FORMOTEROL 160-4.5 MCG 60 PUFF/6 GM MDI IH SCH (10:25)
[2018-04-18] MEDS: ENOXAPARIN SODIUM INJ 30 MG/0.3 ML DISP.SYRIN SUBCUT SCH (10:34)
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
[2018-04-18] MEDS ORDERED: LORAZEPAM INJ 2 MG/1 ML VIAL IV PRN (12:11)
[2018-04-18 12:36] VITALS: BP 132/58
[2018-04-18] MEDS ORDERED: LORAZEPAM 1 MG TABLET PO ONE (14:30)
== END 2018-04-18 15:10 | DRG 689 ==
LOC: ER 16:06 → EH 19:41 → 4N 23:40
PROVIDERS: ADMIT Family Medicine; ATTEND Family Medicine
DX: N10 Acute pyelonephritis (principal); G93.41 Metabolic encephalopathy; F03.91 Unspecified dementia, unspecified severity, with behavioral disturbance; C34.90 Malignant neoplasm of unspecified part of unspecified bronchus or lung; E83.39 Other disorders of phosphorus metabolism; E87.6 Hypokalemia; E83.52 Hypercalcemia; R45.1 Restlessness and agitation; R41.82 Altered mental status, unspecified; E78.00 Pure hypercholesterolemia, unspecified; I10 Essential (primary) hypertension; J44.9 Chronic obstructive pulmonary disease, unspecified; M19.90 Unspecified osteoarthritis, unspecified site; Z79.82 Long term (current) use of aspirin; Z79.899 Other long term (current) drug therapy; Z78.1 Physical restraint status
CPT/HCPCS: 36415; 51702; 70450; 71045; 71260; 80048; 80053; 80164; 81001; 82550; 82553; 83605; 83735; 84100; 84484; 85025; 87040; 87086; 87088; 87186; 87493; 93005; 93010; 96361; 96374; 99285; G8978-GP; G8979-GP; G8987-GO; G8988-GO; G8989-GO; G8996-GN; G8997-GN; G8998-GN; J0696; J1200; J1630; J1650; J3480; J3490; J7030; J7620; J8499